=== PATIENT | male | born 1935 | race Caucasian/White ===

== ENCOUNTER 2016-06-29 15:17 | Emergency (ER) | payer OTHER, MEDICARE ==
[2016-06-29 15:25] VITALS: PULSE 80; TEMP 97.7; BMI 16.7
[2016-06-29 16:50] LABS: BASOPHIL 0.6 % (0-2.0); EOSINOPHIL 1.3 % (0-4.5); MCH 30.8 pg (25.7-33.7); MCHC 33.6 g/dl (32.0-35.9); MEAN CELL VOLUME 91.6 fl (80-96); MEAN PLT VOLUME 8.5 fl (7.5-11.1); NEUTROPHILS 73.3 % (42.8-82.8); PLATELET COUNT 189 K/MM3 (134-434); RDW 14.1 % (11.9-15.9); WHITE BLOOD COUNT 8.8 K/mm3 (4.0-10.0)
[2016-06-29 17:05] LABS: PH,URINE 6.5 (5.0-8.0); URINE BILIRUBIN 1+ (NEGATIVE); URINE COLOR RED; URINE GLUCOSE (UA) NEGATIVE (NEGATIVE); URINE KETONE NEGATIVE (NEGATIVE); URINE LEUK ESTERASE NEGATIVE (NEGATIVE); URINE NITRITE NEGATIVE (NEGATIVE); URINE UROBILINOGEN 0.2 E.U/dl E.U./dl (0.2-1.0)
[2016-06-29 17:07] LABS: URINE APPEARANCE CLOUDY; URINE BLOOD 3+ (NEGATIVE); URINE PROTEIN 3+ (NEGATIVE)
[2016-06-29 17:16] LABS: INR 1.39 (0.82-1.09); PROTHROMBIN TIME (PATIENT) 15.4 SEC (9.98-11.88)
--- NOTE | 2016-06-29 17:17 | PDOC ---
History of Present Illness - General Chief Complaint: Pain, Acute Stated Complaint: POST-OP, LOWER PELVIC/ABD PAIN Time Seen by Provider: 06/29/16 16:13 History Source: Patient, Spouse Exam Limitations: No Limitations - History of Present Illness Travel History: No Initial Comments: 06/29/16 17:14 Patient came with complaints of dysuria/oliguria. has had 2 different prostate procedures by Dr. Carpenter, once on June 11, second on June 18. States had subsequent bleeding and had to be recatheterized both of those times. Was feeling well up until yesterday when he had an occurrence recurrent onset of inability to urine with some bleeding from his penis. Patient states today has been unable to void since early this morning. Comes to emergency department with full bladder but no fever, nausea vomiting, has had some loose stools today. Was unable to reach Dr. Carpenter's office Timing/Duration: reports: constant Abdominal Pain Onset Location: reports: suprapubic Past History - Travel Traveled outside of the country in the last 30 days: No Close contact w/someone who was outside of country & ill: No - Past Medical History Allergies/Adverse Reactions: Allergies Allergy/AdvReac Type Severity Reaction Status Date / Time No Known Allergies Allergy Verified 06/29/16 15:26 Home Medications: Ambulatory Orders Aspirin [Aspirin EC] 81 mg PO ASDIR 12/03/14 Metoprolol Succinate [Toprol XL -] 25 mg PO BID PRN 01/30/15 Sulfamethoxazole/Trimethoprim [Bactrim *Ds*] 1 each PO BID #10 tablet 06/29/16 Anemia: No Asthma: No Cancer: No Cardiac Disorders: Yes (H/O IRREGULAR HEART BEAT) CVA: No COPD: No CHF: No Dementia: No Diabetes: No GI Disorders: Yes (H/O GI BLEED,CONSTIPATION) Disorders: Yes (ENLARGED PROSTATE) HTN: No Hypercholesterolemia: No Liver Disease: No Suicide Attempt (Hx): No Seizures: No Thyroid Disease: No - Surgical History Abdominal Surgery: Yes (RUPTURED ULCER) Appendectomy: No Cardiac Surgery: Yes (S/P CARDIAC ABLATION) Cholecystectomy: No Lung Surgery: No Neurologic Surgery: No Orthopedic Surgery: Yes (RIGHT HIP REPLACEMETN) - Immunization History Immunization Up to Date: Yes - Psycho/Social/Smoking Cessation Hx Anxiety: No Suicidal Ideation: No Smoking Status: Yes Smoking History: Current every day smoker Years of Tobacco Use: 50 Have you smoked in the past 12 months: Yes Number of Cigarettes Smoked Daily: 10 If you are a former smoker, when did you quit?: 2013 Information on smoking cessation initiated: No 'Breaking Loose' booklet given: 03/23/15 Hx Alcohol Use: No Drug/Substance Use Hx: No Substance Use Type: None Hx Substance Use Treatment: No Abd/GI Specific PMHX - Complaint Specific PMHX Diverticulitis: No Review of Systems - Review of Systems Able to Perform ROS?: Yes Is the patient limited Mongolian proficient: Yes Constitutional: Yes: Symptoms Reported, Loss of Appetite, Malaise HEENTM: No: Symptoms Reported Respiratory: Yes: Symptoms reported Integumentary: Yes: Symptoms Reported Neurological: Yes: Symptoms reported *Physical Exam - Vital Signs Last Vital Signs Temp Pulse Resp BP Pulse Ox 97.7 F 80 18 134/87 98 06/29/16 15:21 06/29/16 15:21 06/29/16 15:21 06/29/16 15:21 06/29/16 15:21 - Physical Exam General Appearance: Yes: Nourished, Appropriately Dressed, Apparent Distress, Mild Distress, Moderate Distress HEENT: positive: MICHEAL, Normal ENT Inspection, TMs Normal, Pharynx Normal Neck: positive: Supple. negative: Tender, Lymphadenopathy (R), Lymphadenopathy (L) Respiratory/Chest: positive: Lungs Clear, Normal Breath Sounds Cardiovascular: positive: Regular Rate Gastrointestinal/Abdominal: positive: Tender, Soft, Other (distended bladder and tender otherwise abdomen is soft) Male Genitalia: positive: normal genitalia, discharge (bleeding noted at meatus) Extremity: positive: Normal Capillary Refill, Normal Inspection Integumentary: positive: Normal Color, Dry Neurologic: positive: business banking manager II-XII NML intact, Fully Oriented, Alert, Normal Mood/ Affect, Normal Response, Motor Strength 5/5 ED Treatment Course - LABORATORY CBC & Chemistry Diagram: 06/29/16 16:30 06/29/16 16:02 - ADDITIONAL ORDERS Additional order review: Laboratory Results 06/29/16 15:40 Urine Color Red Urine Appearance Cloudy Urine pH 6.5 Ur Specific Gary 1.020 Urine Protein 3+ H Urine Glucose (UA) Negative Urine Ketones Negative Urine Blood 3+ H Urine Nitrite Negative Urine Bilirubin 1+ H Urine Urobilinogen 0.2 e.u/dl Ur Leukocyte Esterase Negative 06/29/16 16:30 RBC 4.15 D MCV 91.6 MCHC 33.6 RDW 14.1 D MPV 8.5 Neutrophils % 73.3 Lymphocytes % 18.9 Monocytes % 5.9 Eosinophils % 1.3 Basophils % 0.6 Progress Note - Progress Note Progress Note: Hematuria with only.. Catheterized with immediate return of total 15,00 cc of blood-tinged urine. Medical Decision Making - Medical Decision Making 06/29/16 17:20 anuria to obstruction/clots .. Resolved with Cox catheterization *DC/Admit/Observation/Transfer Diagnosis at time of Disposition: Acute urinary retention - Discharge Dispostion Disposition: HOME Condition at time of disposition: Stable Admit: No - Prescriptions Prescriptions: Sulfamethoxazole/Trimethoprim [Bactrim *Ds*] 1 each PO BID #10 tablet - Referrals Referrals: Drea Johnson MD [Primary Care Provider] - Zafar Velazquez MD., [Staff Physician] - - Patient Instructions Printed Discharge Instructions: DI for Urinary Retention in Men Additional Instructions: Drink lots of water fluids May "milk the catheter" if feel is becoming occluded Empty frequently, not allowing bloody urine to sit for long periods of time/ allowing to clot Bactrim DS, one tab every 12 hours for the next 5 days Stop aspirin until directed otherwise by urology Call and have follow-up appointment tomorrow or Thursday with Dr. Carpenter
[2016-06-29 17:21] LABS: URINE RBC TNTC /hpf (0-3)
[2016-06-29 17:24] LABS: ALBUMIN 3.5 g/dl (3.4-5.0); ANION GAP 7 (8-16); BILIRUBIN,TOTAL 0.3 mg/dL (0.2-1.0); CALCIUM 8.1 mg/dL (8.5-10.1); CO2 30 mmol/L (21-32); CREATININE 0.8 mg/dL (0.7-1.3); GLUCOSE,RANDOM 71 mg/dL (74-106); SGOT/AST 27 U/L (15-37); SGPT/ALT 28 U/L (12-78); TOT PROT 6.2 g/dl (6.4-8.2)
[2016-06-29 17:25] LABS: ALK PHOS 69 U/L (45-117)
[2016-06-29] MEDS ORDERED: SULFAMETHOXAZOLE/TRIMETHOPRIM 800MG/160MG D.S. TABLET PO ONE (18:12)
[2016-06-29] MEDS ORDERED: SULFAMETHOXAZOLE/TRIMETHOPRIM 800MG/160MG D.S. TABLET ONE (18:18)
[2016-06-29 18:29] VITALS: BP 134/71
== END 2016-06-29 18:29 | disposition home or self-care (01) ==
LOC: JER 15:17
PROC: 0T9B70Z Drainage of Bladder with Drainage Device, Via Natural or Artificial Opening (ICD-10-PCS; principal; 2016-06-29)
DX: R33.8 Other retention of urine (principal); I49.8 Other specified cardiac arrhythmias; I10 Essential (primary) hypertension
CPT/HCPCS: 36415; 51702; 80053; 81003; 81015; 85025; 85610; 87086; 99283-25

== ENCOUNTER 2017-01-08 07:49 | Emergency (ER) | payer OTHER, MEDICARE ==
[2017-01-08 08:11] VITALS: BP 129/72; PULSE 58; TEMP 98; BMI 14.1
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
== END 2017-01-08 09:44 | disposition home or self-care (01) ==
LOC: JER 07:49
DX: S06.9X1A Unspecified intracranial injury with loss of consciousness of 30 minutes or less, initial encounter (principal); W50.0XXA Accidental hit or strike by another person, initial encounter; Y93.89 Activity, other specified; Y92.512 Supermarket, store or market as the place of occurrence of the external cause
CPT/HCPCS: 70450-TC; 73502-TC-RT; 99281-25

== ENCOUNTER 2018-01-19 01:00 | Emergency (ER) | payer OTHER, MEDICARE ==
[2018-01-19 01:21] VITALS: BMI 16.5
--- NOTE | 2018-01-19 02:19 | PDOC ---
History of Present Illness - General Chief Complaint: Injury Stated Complaint: FALL Time Seen by Provider: 01/19/18 01:47 History Source: Patient, Spouse Exam Limitations: Dementia - History of Present Illness Initial Comments: 01/19/18 02:13 82 yo male pmh of dementia, afib with ablation presents from home pmh after fall at 11 pm. No LOC, on aspirin 81mg. Complaining of ODONNELL, 1 episode of vomiting and new left sided numbness/tingling and weakness in the upper and lower ext. Patient admittedly more confused according to his after the fall as well. NIH Stroke Scale - Last Known Well Date/Time & Onset Date Last Known Well: 01/18/18 Time Last Known Well: 23:00 - Initial Evaluation Level of consciousness: Alert Ask patient the month and their age: Answers both correctly Ask patient to open & close eyes; make fist and let go: Obeys both correctly Best gaze (horizontal eye movement): Normal Visual field testing: No visual field loss Facial paresis (Show teeth/raise eyebrows/close eyes tight): Normal symmetrical movement Motor Function: Left Arm: Some effort against gravity Motor Function: Right Arm: Normal (extends arm 90 (or 45) degrees for 10 seconds without drift Motor Function: Left Leg: Some effort against gravity Motor Function: Right Leg: Normal (extends leg 30 degrees for 5 seconds without drift) Limb Ataxia: Untestable (Joint fused or limb amputated), explain: (not ambulating) Sensory(Use pinprick test arms,legs,trunk,face/side to side): Mild to moderate decrease in sensation Best language (Describe picture, name items, read sentences): No Aphasia Dysarthria (read several words): Normal articulation Extinction and Inattention: No abnormality - Total Score NIH Stroke Scale Score: 5 Past History - Past Medical History Allergies/Adverse Reactions: Allergies Allergy/AdvReac Type Severity Reaction Status Date / Time No Known Allergies Allergy Verified 01/19/18 01:16 Home Medications: Ambulatory Orders Aspirin [Aspirin EC] 81 mg PO ASDIR 12/03/14 Metoprolol Succinate [Toprol XL -] 25 mg PO BID PRN 01/30/15 Anemia: No Asthma: No Cancer: No Cardiac Disorders: Yes (H/O IRREGULAR HEART BEAT) CVA: No COPD: No CHF: No Dementia: No Diabetes: No GI Disorders: Yes (H/O GI BLEED,CONSTIPATION) Disorders: Yes (ENLARGED PROSTATE) HTN: No Hypercholesterolemia: No Liver Disease: No Seizures: No Thyroid Disease: No - Surgical History Abdominal Surgery: Yes (RUPTURED ULCER) Appendectomy: No Cardiac Surgery: Yes (S/P CARDIAC ABLATION) Cholecystectomy: No Lung Surgery: No Neurologic Surgery: No Orthopedic Surgery: Yes (RIGHT HIP REPLACEMENT) - Immunization History Immunization Up to Date: Yes - Suicide/Smoking/Psychosocial Hx Smoking Status: Yes Smoking History: Unknown if ever smoked Years of Tobacco Use: 50 Have you smoked in the past 12 months: No Number of Cigarettes Smoked Daily: 10 If you are a former smoker, when did you quit?: 2013 Information on smoking cessation initiated: No 'Breaking Loose' booklet given: 01/08/17 Hx Alcohol Use: No Drug/Substance Use Hx: No Substance Use Type: None Hx Substance Use Treatment: No Review of Systems - Review of Systems HEENTM: No: Blurred Vision, Double Vision Respiratory: No: Shortness of Breath Cardiac (ROS): No: Chest Pain Neurological: Yes: Headache, Numbness, Paresthesia, Weakness (left sided) Hematologic/Lymphatic: Yes: Other (aspirin 81) *Physical Exam - Vital Signs Last Vital Signs Temp Pulse Resp BP Pulse Ox 97.7 F 68 18 142/85 99 01/19/18 01:05 01/19/18 01:05 01/19/18 01:05 01/19/18 01:05 01/19/18 01:05 - Physical Exam General Appearance: Yes: Nourished, Appropriately Dressed, Apparent Distress ( intermittent involuntary shaking) HEENT: positive: EOMI, MICHEAL Respiratory/Chest: positive: Lungs Clear, Normal Breath Sounds Cardiovascular: positive: Regular Rhythm, Regular Rate, S1, S2. negative: Edema , JVD, Murmur Vascular Pulses: Dorsalis-Pedis (R): 4+, Doralis-Pedis (L): 4+ Gastrointestinal/Abdominal: positive: Normal Bowel Sounds, Flat, Soft. negative : Guarding, Rebound, Tenderness Extremity: positive: Normal Capillary Refill Integumentary: positive: Normal Color, Dry, Warm Neurologic: positive: Fully Oriented, Alert, Normal Mood/Affect. negative: Motor Strength 5/5 (4/5 left upper and lower ext. Decreased sensation left uppre and lower ext) *DC/Admit/Observation/Transfer Diagnosis at time of Disposition: Stroke Qualifiers: CVA mechanism: other Qualified Code(s): I63.8 - Other cerebral infarction - Discharge Dispostion Disposition: TRANSFER ACUTE CARE/OTHER HOSP Condition at time of disposition: Stable Decision to Admit order: No - Referrals - Patient Instructions - Post Discharge Activity
[2018-01-19] MEDS ORDERED: levETIRAcetam 500 MG/5 ML INJECTION VIAL IVPB ONE (02:45)
--- NOTE | 2018-01-19 02:46 | PDOC ---
Attending Attestation - Resident Resident Name: Luc Medina - ED Attending Attestation I have performed the following: I have examined & evaluated the patient, The case was reviewed & discussed with the resident, I agree w/resident's findings & plan, Exceptions are as noted - HPI HPI: 01/19/18 02:37 82 YO MALE h/o prior gastric ulcer here with c/o AMS, left sided weakness. per his who provides most of the history the patient was sleeping on couch after taking melatonin. suddenly fell of the couch afterwords was unable to get up . no n/v no loc. no ho prior cva. states he was acting normal during the last 24 hours, but was c/o left sided " pain" was ambulating and speaking without difficulty. last normal 3 hours prior to presentation. no seizure like activity, no other complaints. - Physicial Exam PE: 01/19/18 02:46 sleeping but arousable. answers questions intermittently. lung clear bilaterally heart rrr nomrg. abd soft nt nd. ext wwp. pelvis stable. left hip FROM NT. right hip NT FROM. skin warm and dry. pt alert oriented x 1. nuero exam left upper ext 3/5 , left lower ext 4/5. speech clear. - Medical Decision Making 01/19/18 02:52 pt with new onset left upper and lower ext weakness, concens for cva, ich fracture, plan labs cthead, cxr ekg. xray pelvis. code simons called as pt with acute left upper ext weakness. ct resulted shows a right occiptal bleed. call center assistant DR Evin warner, awaiting call back. d/w gabbi anaya who accepting for Yasari at neurosurgery, and Dr. Gutierrez in ED who will accept pt to ED. keppra 1g given to patient. 01/19/18 03:15 Heart Score/ECG Review #1 General ECG Interpretation: Sinus Rhythm, Normal Rate (68), Normal Intervals, No acute ischemic changes NIH Stroke Scale - Last Known Well Date/Time & Onset Date Last Known Well: 01/18/18 Time Last Known Well: 11:00 - Initial Evaluation Level of consciousness: Alert Ask patient the month and their age: Answers both correctly Ask patient to open & close eyes; make fist and let go: Obeys both correctly Best gaze (horizontal eye movement): Normal Visual field testing: No visual field loss Facial paresis (Show teeth/raise eyebrows/close eyes tight): Normal symmetrical movement Motor Function: Left Arm: Some effort against gravity Motor Function: Right Arm: Normal (extends arm 90 (or 45) degrees for 10 seconds without drift Motor Function: Left Leg: Drift Motor Function: Right Leg: Normal (extends leg 30 degrees for 5 seconds without drift) Limb Ataxia: No ataxia Sensory(Use pinprick test arms,legs,trunk,face/side to side): Normal Best language (Describe picture, name items, read sentences): No Aphasia Dysarthria (read several words): Normal articulation Extinction and Inattention: No abnormality - Total Score NIH Stroke Scale Score: 3
[2018-01-19 03:01] LABS: BASO % 0.5 % (0-2.0); EOS % 2.2 % (0-4.5); HEMATOCRIT 39.7 % (35.4-49); HEMOGLOBIN 13.4 GM/dL (11.7-16.9); LYMPH % 12.7 % (8-40); MCH 30.2 pg (25.7-33.7); MCHC 33.7 g/dl (32.0-35.9); MEAN CELL VOLUME 89.7 fl (80-96); MEAN PLT VOLUME 8.1 fl (7.5-11.1); MONO % 5.9 % (3.8-10.2); NEUT % 78.7 % (42.8-82.8); PLATELET COUNT 172 K/MM3 (134-434); RBC 4.43 M/mm3 (4.00-5.60); RDW 14.2 % (11.9-15.9); WHITE BLOOD COUNT 8.1 K/mm3 (4.0-10.0)
[2018-01-19 03:08] VITALS: TEMP 98.5
[2018-01-19 03:13] LABS: INR 1.3 (0.83-1.09); PROTHROMBIN TIME (PATIENT) 14.7 SEC (9.7-13.0)
[2018-01-19 03:22] LABS: ALBUMIN 3.4 g/dl (3.4-5.0); ANION GAP 5 MMOL/L (8-16); BILIRUBIN,TOTAL 0.5 mg/dL (0.2-1); BLOOD UREA NITROGEN 19 mg/dL (7-18); CALCIUM 8.4 mg/dL (8.5-10.1); CHLORIDE 104 mmol/L (98-107); CO2 32 mmol/L (21-32); CREATININE 1.1 mg/dL (0.55-1.3); GLUCOSE,RANDOM 112 mg/dL (74-106); POTASSIUM 4.3 mmol/L (3.5-5.1); SGOT/AST 30 U/L (15-37); SGPT/ALT 25 U/L (13-61); SODIUM 141 mmol/L (136-145)
[2018-01-19 03:24] LABS: ALK PHOS 72 U/L (45-117); TOT PROT 6.5 g/dl (6.4-8.2)
[2018-01-19 04:38] VITALS: BP 140/68; PULSE 76
--- NOTE | 2018-01-19 16:18 | EKG ---
Test Reason : Blood Pressure : / mmHG Vent. Rate : 069 BPM Atrial Rate : 069 BPM P-R Int : 140 ms QRS Dur : 082 ms QT Int : 402 ms P-R-T Axes : -55 -56 -07 degrees QTc Int : 430 ms UNUSUAL P AXIS, POSSIBLE ECTOPIC ATRIAL RHYTHM LEFT AXIS DEVIATION ABNORMAL ECG WHEN COMPARED WITH ECG OF 12-JUN-2015 10:12, ECTOPIC ATRIAL RHYTHM HAS REPLACED SINUS RHYTHM QRS AXIS SHIFTED LEFT NONSPECIFIC T WAVE ABNORMALITY NOW EVIDENT IN INFERIOR LEADS Confirmed by Aris Veliz ([id number]) on 01/19/2018 4:18:24 PM Referred By: Confirmed By:Aris Veliz
== END 2018-01-19 04:05 | disposition short-term general hospital (02) ==
LOC: JER 01:00
PROC: 3E033GC Introduction of Other Therapeutic Substance into Peripheral Vein, Percutaneous Approach (ICD-10-PCS; principal; 2018-01-19)
DX: I63.8 Other cerebral infarction (principal); F03.90 Unspecified dementia, unspecified severity, without behavioral disturbance, psychotic disturbance, mood disturbance, and anxiety; Z87.891 Personal history of nicotine dependence; I49.9 Cardiac arrhythmia, unspecified; Z96.641 Presence of right artificial hip joint
CPT/HCPCS: 36415; 70450-TC; 71045-TC-FY; 80053; 82550; 82553; 84484; 85025; 85610; 93005; 93010; 96374; 99283-25

== ENCOUNTER 2018-04-29 16:36 | Emergency (ER) | payer OTHER, MEDICARE ==
[2018-04-29 16:48] VITALS: BMI 17.9
[2018-04-29] MEDS ORDERED: ACETAMINOPHEN 500 MG TABLET (FP) PO ONE (17:15)
--- NOTE | 2018-04-29 17:31 | PDOC ---
Attending Attestation - [facility] HPI: 04/29/18 18:08 The patient is a 83 year old male, with a significant past medical history of Afib s/p ablation and dementia, who presents to the emergency department with left lateral hip pain after falling while trying to sit in a chair this evening. The patient states he missed the chair and fell onto his buttocks. He denies head or neck trauma. He denies LOC. He denies an preceding symptoms prior to falling. He denies any numbness or tingling. He denies any other complaints. The patient denies chest pain, shortness of breath, headache and dizziness. The patient denies fever, chills, nausea, vomit, diarrhea and constipation. The patient denies dysuria, frequency, urgency and hematuria. Allergies: NKDA Past surgical history: right THR - Physicial Exam PE: 04/29/18 18:08 Constitutional: Awake, alert, oriented. No acute distress. Head: Normocephalic. Atraumatic Eyes: PERRL. EOMI. Conjunctivae are not pale. ENT: Mucous membranes are moist and intact. Posterior pharynx without exudates or erythema. Uvula midline. Neck: Supple. Full ROM. No lymphadenopathy. Cardiovascular: Regular rate. Regular rhythm. S1, S2 regular. Distal pulses are 2+ and symmetric. Pulmonary/Chest: No evidence of respiratory distress. Clear to auscultation bilaterally No wheezing, rales or rhonchi. Abdominal: Soft and non-distended. There is no tenderness. No rebound, guarding or rigidity. No organomegaly. No palpable masses. Good bowel sounds. Back: No CVA tenderness. Musculoskeletal: (+) left lateral hip tenderness on palpation. No edema. No cyanosis. No clubbing. Full range of motion in all extremities. No cspine or Lspine tenderness or deformity. Nocalf tenderness. Radial/pedal pulses are intact and 2+ bilaterally Skin: Skin is warm and dry. No petechiae. No purpura. Neurological: Alert and oriented to person, place, and time. Cranial nerves II -XII are grossly intact. Normal speech. Strength is grossly symmetric. No sensory deficits. Psychiatric: Good eye contact. Normal interaction, affect and behavior. - Medical Decision Making 04/29/18 18:08 Documentation prepared by Val Feng, acting as medical claims examiner for Cristiana Russ DO <Val Feng - Last Filed: 04/29/18 18:08> - Resident Resident Name: Chemo Fernandez - ED Attending Attestation I have performed the following: I have examined & evaluated the patient, The case was reviewed & discussed with the resident, I agree w/resident's findings & plan, Exceptions are as noted - Medical Decision Making 04/29/18 17:29 I, Dr. Cristiana Russ DO, attest that this document has been prepared under my direction and personally reviewed by me in its entirety. I further attest, that it accurately reflects all work, treatment, procedures and medical decision -making performed by me. 04/29/18 17:46 a/p: 83yo male with a mechanical fall earlier today when he went to sit on a chair and missed the chair. Landed on his L hip -hx of R hip replacement -pt with point tenderness to the lateral L hip -pt able to range the joint -denies cp/sob/abd pain/headache or injury -will obtain xrays of the R hip and pelvis -no back ttp -pt awake, alert, hx of dementia, but currently [id number] 04/29/18 18:39 xray negative pt ambulated with assistance has a walker and wheelchair at home has son and at home to assist with ambulation stable for d/c to home pt requesting to go home <Cristiana Russ - Last Filed: 04/29/18 18:40>
--- NOTE | 2018-04-29 17:37 | PDOC ---
History of Present Illness - General Chief Complaint: Injury Stated Complaint: Injury Time Seen by Provider: 04/29/18 16:59 History Source: Patient, Old Records Exam Limitations: Dementia - History of Present Illness Initial Comments: 83 y/o male BIBEMS from home complaining of left hip pain. Symptoms started after pt missed the chair and fell onto the ground, striking the left hip. Denies hitting his head or neck. Denies LOC, nausea/vomiting, or anterograde or retrograde amnesia. Was not able to ambulate after the fall secondary to pain. His and son witnessed the fall. Son carried his father from the kitchen to his bed before calling for an ambulance. Endorses point tenderness on to left hip, but no pain at rest. Was in previous state of health prior to fall. Pt unable to recall his medical history. No family present at bedside. [facility]. Past History - Past Medical History Allergies/Adverse Reactions: Allergies Allergy/AdvReac Type Severity Reaction Status Date / Time No Known Allergies Allergy Verified 01/19/18 01:16 Home Medications: Ambulatory Orders Aspirin [Aspirin EC] 81 mg PO ASDIR 12/03/14 Metoprolol Succinate [Toprol XL -] 25 mg PO BID PRN 01/30/15 Anemia: No Asthma: No Cancer: No Cardiac Disorders: Yes (H/O IRREGULAR HEART BEAT) CVA: No COPD: No CHF: No Dementia: No Diabetes: No GI Disorders: Yes (H/O GI BLEED,CONSTIPATION) Disorders: Yes (ENLARGED PROSTATE) HTN: No Hypercholesterolemia: No Liver Disease: No Seizures: No Thyroid Disease: No - Surgical History Abdominal Surgery: Yes (RUPTURED ULCER) Appendectomy: No Cardiac Surgery: Yes (S/P CARDIAC ABLATION) Cholecystectomy: No Lung Surgery: No Neurologic Surgery: No Orthopedic Surgery: Yes (RIGHT HIP REPLACEMENT) - Immunization History Immunization Up to Date: Yes - Suicide/Smoking/Psychosocial Hx Smoking Status: Yes Smoking History: Former smoker Years of Tobacco Use: 50 Have you smoked in the past 12 months: No Number of Cigarettes Smoked Daily: 10 If you are a former smoker, when did you quit?: 2013 Information on smoking cessation initiated: No 'Breaking Loose' booklet given: 01/08/17 Hx Alcohol Use: No Drug/Substance Use Hx: No Substance Use Type: None Hx Substance Use Treatment: No Review of Systems - Review of Systems Able to Perform ROS?: Yes Comments:: In addition to that documented in the HPI above, the additional ROS was obtained : Constitutional: Denies fevers or chills or syncope Eyes: Denies vision changes ENMT: Denies sore throat CV: Denies chest pain Resp: Denies SOB GI: Denies vomiting or diarrhea : Denies painful urination MSK: Per HPI Skin: Denies new rashes Neuro: Denies new numbness or tingling or weakness Endocrine: Denies polyuria Heme: Denies bleeding or bruising *Physical Exam - Vital Signs Last Vital Signs Temp Pulse Resp BP Pulse Ox 98.5 F 54 L 18 130/86 96 04/29/18 16:44 04/29/18 16:44 04/29/18 16:44 04/29/18 16:44 04/29/18 16:44 - Physical Exam Comments: Constitutional: Well-developed, thin male in no acute distress or obvious discomfort. Found semi-fowlers on hospital bed. Alert and oriented x4. Answered all questions appropriately and completely. Speech was non-labored, non- pressured. Head: Normocephalic. No obvious external signs of trauma. Eyes: Pupils 4 mm and PERRL bilaterally. Sclerae white. Conjunctiva moist and not injected. EARS: Hearing grossly intact. NOSE: No nasal discharge. THROAT: Oral cavity and pharynx normal. No inflammation, swelling, exudate, or lesions. Neck: Supple, trachea is midline. Cardiovascular: Regular rate and regular rhythm. No murmur, rubs, clicks, or gallops. Peripheral pulses: Radial pulses full. Respiratory: Breathing unlabored. Equal chest rise and fall. Clear to auscultation bilaterally. No stridor, no wheezing, no rhonchi. Gastrointestinal: abdomen is soft, non-tender, non-distended. Old post- operative scar in midline. Neuro: Alert and oriented. Moving all four extremities spontaneously. Intact sensation to all four extremities. MSK: Point tenderness to lateral aspect of left hip. No obvious deformity when compared to right. Able to actively flex and extend from left hip. Old post-op scar on right hip. No bruising or soft tissue swelling. Pelvis stable. Skin: Warm, dry, and intact. No bruising, rashes, or other lesions. Psych: Affect: appropriate. Mood: normal. Moderate Sedation - Procedure Monitoring Vital Signs: Procedure Monitoring Vital Signs Temperature 98.5 F 04/29/18 16:44 Pulse Rate 54 L 04/29/18 16:44 Respiratory Rate 18 04/29/18 16:44 Blood Pressure 130/86 04/29/18 16:44 O2 Sat by Pulse Oximetry (%) 96 04/29/18 16:44 ED Treatment Course - RADIOLOGY Radiology Studies Ordered: Category Date Time Status HIP & PELVIS-LEFT [RAD] Stat Radiology 04/29/18 17:15 Ordered Medical Decision Making - Medical Decision Making *Reviewed vital signs, nursing notes, and prior visit documentation (if available). 83 y/o male complaining of left hip pain s/p fall from standing position this afternoon. Has not attempted to ambulate or bare weight. Did not strike his head or neck. Will obtain plain films of left hip and pelvis to evaluate for fracture or dislocation. Ordered acetaminophen for pain relief. No fracture or dislocation of on plain film per ED wet read. Formal radiology report to follow. Pt re-assessed. Continued to complain of pain only with movement. Able to stand and walk with assistance. Pt endorses occasionally using walker and wheelchair at home. Believes son will be able to assist with movement. Discussed imaging results with pt. Answered all questions. Provided return precautions. Pt expressed verbal understanding and agreement with plan to discharge home with outpatient follow up. *DC/Admit/Observation/Transfer Diagnosis at time of Disposition: Left hip pain - Discharge Dispostion Disposition: HOME Condition at time of disposition: Good Decision to Admit order: No - Referrals - Patient Instructions Printed Discharge Instructions: How to Prevent Falls Additional Instructions: You were seen today for left hip pain after falling in your kitchen. The xray was normal today. It did not show any breaks or fractures. Your pain is likely muscle or soft tissue injury. It may continue to hurt over the next several days. You can take over the counter Tylenol (Acetaminophen) for pain. Take as directed on the package insert. Do not take more than the recommended dose. You should follow up with your primary care doctor within the next week to make sure you are healing. You will need to call to make the appointment. Go to the nearest emergency department if your condition worsens or you feel like you need additional emergency evaluation. Print Language: TUVALUAN - Post Discharge Activity
[2018-04-29] MEDS ORDERED: ACETAMINOPHEN 325 MG TABLET (FP) ONE (17:38)
[2018-04-29 20:11] VITALS: BP 110/78; PULSE 88; TEMP 98.6
== END 2018-04-29 20:12 | disposition home or self-care (01) ==
LOC: JER 16:36
DX: M25.552 Pain in left hip (principal); W18.39XA Other fall on same level, initial encounter; Y93.89 Activity, other specified; Y92.010 Kitchen of single-family (private) house as the place of occurrence of the external cause; Y99.8 Other external cause status; F03.90 Unspecified dementia, unspecified severity, without behavioral disturbance, psychotic disturbance, mood disturbance, and anxiety; N40.0 Benign prostatic hyperplasia without lower urinary tract symptoms; Z86.79 Personal history of other diseases of the circulatory system; Z96.641 Presence of right artificial hip joint
CPT/HCPCS: 73523-TC-FY; 99282-25

== ENCOUNTER 2018-05-08 05:57 | Inpatient (IN) | payer OTHER, MEDICARE ==
--- NOTE | 2018-05-08 06:04 | PDOC ---
History of Present Illness - General Stated Complaint: HIP PAIN Time Seen by Provider: 05/08/18 06:03 History Source: Patient Exam Limitations: No Limitations - History of Present Illness Initial Comments: 05/08/18 06:28 Pmhx: A-fib, dementia Pshx: Right THR, ablation Allergies: NKDA 83-year-old female avrin presents to the ER complaining of left-sided hip pain. Patient states he fell 8 days ago. Patient states he was attempting to sit on a chair when he missed and fell onto his buttocks on the floor. Pain is described as 7/10 sharp nonradiating intermittent discomfort which is exacerbated on certain movements and alleviated minimally at rest. Patient denies any head/neck or back pains. Patient denies fever/chills, nausea/vomiting , headache, dizziness, lightheadedness, facial pains, dizziness/pain, back pains , chest pain, shortness of breath, abdominal pains, flank pains, urinary symptoms, bladder or bowel dysfunction, extremity numbness or tingling sensation. Patient states he is unable to walk due to his pain. Patient states when he was seen in the emergency department on 04/29/2018, he had x-ray to his left hip and pelvis and were negative. Patient states after getting discharged, he was fine for 12 hours but the pain slowly came back and has been excruciating since yesterday. Past History - Past Medical History Allergies/Adverse Reactions: Allergies Allergy/AdvReac Type Severity Reaction Status Date / Time No Known Allergies Allergy Verified 05/08/18 06:17 Home Medications: Ambulatory Orders Metoprolol Succinate [Toprol XL -] 25 mg PO BID PRN 01/30/15 Anemia: No Asthma: No Cancer: No Cardiac Disorders: Yes (H/O IRREGULAR HEART BEAT) CVA: No COPD: No CHF: No Dementia: No Diabetes: No GI Disorders: Yes (H/O GI BLEED,CONSTIPATION) Disorders: Yes (ENLARGED PROSTATE) HTN: No Hypercholesterolemia: No Liver Disease: No Seizures: No Thyroid Disease: No - Surgical History Abdominal Surgery: Yes (RUPTURED ULCER) Appendectomy: No Cardiac Surgery: Yes (S/P CARDIAC ABLATION) Cholecystectomy: No Lung Surgery: No Neurologic Surgery: No Orthopedic Surgery: Yes (RIGHT HIP REPLACEMENT) - Immunization History Immunization Up to Date: Yes - Suicide/Smoking/Psychosocial Hx Smoking Status: Yes Smoking History: Former smoker Years of Tobacco Use: 50 Have you smoked in the past 12 months: No Number of Cigarettes Smoked Daily: 10 If you are a former smoker, when did you quit?: 2013 'Breaking Loose' booklet given: 01/08/17 Hx Alcohol Use: No Drug/Substance Use Hx: No Substance Use Type: None Hx Substance Use Treatment: No Review of Systems - Review of Systems Able to Perform ROS?: Yes Comments:: 05/08/18 06:32 CONSTITUTIONAL: Absent: fever, chills, diaphoresis, generalized weakness, malaise, loss of appetite HEENT: Absent: rhinorrhea, nasal congestion, throat pain, throat swelling, difficulty swallowing, mouth swelling, ear pain, eye pain, visual Changes CARDIOVASCULAR: Absent: chest pain, loss of consciousness, palpitations, irregular heart rate, peripheral edema RESPIRATORY: Absent: cough, shortness of breath, dyspnea with exertion, orthopnea, wheezing, stridor, hemoptysis GASTROINTESTINAL: Absent: abdominal pain, abdominal distension, nausea, vomiting, diarrhea, constipation, melena, hematochezia GENITOURINARY: Absent: dysuria, frequency, urgency, hesitancy, hematuria, flank pain, genital pain MUSCULOSKELETAL: +Left lat hip pain Absent: myalgia, arthralgia, joint swelling SKIN: Absent: rash, itching, pallor HEMATOLOGIC/IMMUNOLOGIC: Absent: easy bleeding, easy bruising, lymphadenopathy, frequent infections ENDOCRINE: Absent: unexplained weight gain, unexplained weight loss, heat intolerance, cold intolerance NEUROLOGIC: Absent: headache, focal weakness or paresthesias, dizziness, unsteady gait, seizure, mental status changes, bladder or bowel incontinence PSYCHIATRIC: Absent: anxiety, depression, suicidal or homicidal ideation, hallucinations. Is the patient limited Hungarian proficient: No *Physical Exam - Physical Exam Comments: 05/08/18 06:32 GENERAL: Well developed, well nourished. Awake and alert. No acute distress. HEENT: Normocephalic, atraumatic. PERRLA, EOMI. No conjunctival pallor. Sclera are non- icteric. Moist mucous membranes. Oropharynx is clear. NECK: Supple. Full ROM. No JVD. Carotid pulses 2+ and symmetric, without bruits. No thyromegaly. No lymphadenopathy. CARDIOVASCULAR: Regular rate and rhythm. No murmurs, rubs, or gallops. Distal pulses are 2+ and symmetric. PULMONARY: No evidence of respiratory distress. Lungs clear to auscultation bilaterally. No wheezing, rales or rhonchi. ABDOMINAL: Soft. Non-tender. Non-distended. No rebound or guarding. No organomegaly. Normoactive bowel sounds. MUSCULOSKELETAL Left hip: +Pain on palp along lat aspect +neg obv swelling neg ecchymosis Decreased R.O.M./pain Left knee: neg pain on palp decreased R.O.M./left hip pain Excluding left hip:Normal range of motion at all joints. No bony deformities or tenderness. No CVA tenderness. EXTREMITIES: No cyanosis. No clubbing. No edema. No calf tenderness. SKIN: Warm and dry. Normal capillary refill. No rashes. No jaundice. NEUROLOGICAL: Alert, awake, appropriate. Cranial nerves 2-12 intact. No deficits to light touch and temperature in face, upper extremities and lower extremities. No motor deficits in the in face, upper extremities and lower extremities. Normoreflexic in the upper and lower extremities. Normal speech. Toes are down- going bilaterally. Gait is normal without ataxia. PSYCHIATRIC: Cooperative. Good eye contact. Appropriate mood and affect. ED Treatment Course - LABORATORY CBC & Chemistry Diagram: 05/08/18 06:10 05/08/18 06:10 - RADIOLOGY Radiology Studies Ordered: Category Date Time Status LOWER EXTREMITY CT W/O CONTR [CT] Stat CT Scan 05/08/18 06:02 Ordered Radiograph Interpretation: 05/08/18 06:34 Portable cxr; 1v nad Ct lower ext w/o contrast: Transverse fracture of the left femoral neck with some impaction and external rotation. There is foreshortening. Progress Note - Progress Note Progress Note: 0710hrs: Signed out to PEGGY Brock *DC/Admit/Observation/Transfer Diagnosis at time of Disposition: Left hip pain Hip fracture, left Qualifiers: Encounter type: initial encounter Fracture type: closed Qualified Code(s): S72.002A - Fracture of unspecified part of neck of left femur, initial encounter for closed fracture - Discharge Dispostion Condition at time of disposition: Fair - Referrals Referrals: Ciara Hinson MD [Primary Care Provider] - - Patient Instructions - Post Discharge Activity
[2018-05-08 06:25] LABS: BASO % 1.4 % (0-2.0); EOS % 0.7 % (0-4.5); HEMATOCRIT 41.4 % (35.4-49); HEMOGLOBIN 14.5 GM/dL (11.7-16.9); LYMPH % 13.9 % (8-40); MCH 31.3 pg (25.7-33.7); MCHC 35.1 g/dl (32.0-35.9); MEAN CELL VOLUME 89.3 fl (80-96); MEAN PLT VOLUME 8.2 fl (7.5-11.1); MONO % 7.9 % (3.8-10.2); NEUT % 76.1 % (42.8-82.8); PLATELET COUNT 216 K/MM3 (134-434); RBC 4.64 M/mm3 (4.00-5.60); RDW 13.2 % (11.9-15.9); WHITE BLOOD COUNT 8.3 K/mm3 (4.0-10.0)
[2018-05-08 06:41] LABS: INR 1.34 (0.83-1.09); PROTHROMBIN TIME (PATIENT) 15.8 SEC (9.7-13.0)
[2018-05-08 07:05] LABS: ALBUMIN 3.2 g/dl (3.4-5.0); ALK PHOS 123 U/L (45-117); ANION GAP 8 MMOL/L (8-16); BILIRUBIN,TOTAL 0.6 mg/dL (0.2-1); BLOOD UREA NITROGEN 16 mg/dL (7-18); CALCIUM 8.3 mg/dL (8.5-10.1); CHLORIDE 103 mmol/L (98-107); CO2 28 mmol/L (21-32); CREATININE 0.9 mg/dL (0.55-1.3); GLUCOSE,RANDOM 104 mg/dL (74-106); POTASSIUM 4.1 mmol/L (3.5-5.1); SGOT/AST 20 U/L (15-37); SGPT/ALT 18 U/L (13-61); SODIUM 138 mmol/L (136-145); TOT PROT 6.6 g/dl (6.4-8.2)
[2018-05-08] MEDS ORDERED: ONDANSETRON 4 MG/2 ML VIAL IVPUSH ONE (07:05)
[2018-05-08] MEDS ORDERED: morphine CARPU-JECT 2 MG/1 ML DISP.SYRIN IVPUSH ONE (07:05)
[2018-05-08] MEDS ORDERED: ONDANSETRON 4 MG/2 ML VIAL ONE ×2 (08:10→08:17)
[2018-05-08] MEDS ORDERED: MORPHINE SULFATE 2 MG/ML VIAL ONE ×2 (08:10→08:17)
[2018-05-08] MEDS ORDERED: DEXTROSE 5%-0.45% SALINE 1,000 ML IV SCH (08:15)
--- NOTE | 2018-05-08 08:19 | PDOC ---
*Physical Exam - Vital Signs Last Vital Signs Temp Pulse Resp BP Pulse Ox 98.1 F 60 18 190/92 H 97 05/08/18 05:57 05/08/18 05:57 05/08/18 05:57 05/08/18 05:57 05/08/18 05:57 Heart Score/ECG Review - ECG Intrepretation Rhythm: Regular Rhythm (55, sinus bradycardia,) ED Treatment Course - LABORATORY CBC & Chemistry Diagram: 05/08/18 06:10 05/08/18 06:10 - ADDITIONAL ORDERS Additional order review: Laboratory Results 05/08/18 05/08/18 06:10 06:10 PT with INR 15.80 H INR 1.34 H Sodium 138 Potassium 4.1 Chloride 103 Carbon Dioxide 28 Anion Gap 8 BUN 16 Creatinine 0.9 Creat Clearance w eGFR > 60 Random Glucose 104 Calcium 8.3 L Total Bilirubin 0.6 AST 20 ALT 18 Alkaline Phosphatase 123 H Total Protein 6.6 Albumin 3.2 L 05/08/18 06:10 RBC 4.64 MCV 89.3 MCHC 35.1 RDW 13.2 MPV 8.2 Neutrophils % 76.1 Lymphocytes % 13.9 Monocytes % 7.9 Eosinophils % 0.7 Basophils % 1.4 - RADIOLOGY Radiology Studies Ordered: Category Date Time Status DUPLEX VASCUL US-1 LEG [US] Stat Ultrasound 05/08/18 08:07 Ordered Medical Decision Making - Medical Decision Making 05/08/18 08:19 Patient received in sign out from KRISTAN murphy. Patient sustained a fall approximately 8 beats ago and returns here inability to walk and complains of left hip pain. CT of the lower extremity shows a transverse fracture of the left femoral neck with some impaction and external rotation. Patient states is followed by the [facility] and does not have an orthopedist. Patient will be ordered maintenance IV fluids nothing by mouth status, duplex of the lower extremity and will admit . 05/08/18 09:24 Case discussed with hospitalist will admit to [facility] inpatient. Case also discussed with KRISTAN Tomlinson orthopedist automobile service station manager and will consult shortly. Patient is comfortable after receiving morphine *DC/Admit/Observation/Transfer Diagnosis at time of Disposition: Left hip pain Hip fracture, left Qualifiers: Encounter type: initial encounter Fracture type: closed Qualified Code(s): S72.002A - Fracture of unspecified part of neck of left femur, initial encounter for closed fracture - Discharge Dispostion Condition at time of disposition: Fair Decision to Admit order: Yes - Referrals Referrals: Ciara Hinson MD [Primary Care Provider] - - Patient Instructions - Post Discharge Activity
--- NOTE | 2018-05-08 10:01 | HP ---
CHIEF COMPLAINT: left hip pain PCP: dr. De Guzman Cardio: Dr. Felder HISTORY OF PRESENT ILLNESS: 83 yr old man with hx of afib s/p ablation 1(not on AC, now in sinus), dementia s/p stroke, presents with left hip pain since early this morning. says he was sleeping in bed when he was awoken by a sudden pain nonradiating in his left hip , his called 911 and he was brought to [facility]. He sustained a fall on 04/29 when trying to sit on a chair and missed. He was evaluated in [facility] Ed, hip xray at that time did not show any fracture. Since DC he continued to have pain in the left hip somewhat controlled with tylenol and had been ambulating using crutches and a wheelchair. denies repeat falls or changes to bowel habits. denies chest pain, dizziness, lightheadedness, muscle weakness, chest pain, palpitations, sob, LE edema, fevers, chills. recent stroke [address] [facility] then [facility] rehab, denies residual deficits. spoke with [phone]), confirms stroke hx, he did not fall again, he was mainly in the wheelchair and in the bed since dc on 04/29. for past 2 night he had been in excruciating pain and last night he was in such terrible pain that she called an ambulance. they live alone. after stroke rehab he had made a full recovery back to his baseline. denies ASA/NSAID use. they live alone ER course was notable for: (1) hip pelvis ct with left femur fracture (2) (3) Recent Travel: none PAST MEDICAL HISTORY: chart reviewed for further medical hx afib s/p ablation in Mar 2014 BPH stroke 1 month ago at [facility] hx of GI bleeds, peptic ulcer disease hx of DVT(listed in previous h&p - no dates or cause recorded, pt was unsure when I questioned him) PAST SURGICAL HISTORY: prostate surgery right hip replacement approx 2008 due to RA abdominal surgery due to perforated ulcer 20 yrs ago Social History: [place]/day since he was 17, quit 2 months(after his stroke) Alcohol: rare glass of beer Drugs: denies Family History: [place] Allergies No Known Allergies Allergy (Verified 05/08/18 06:17) HOME MEDICATIONS: Home Medications Medication Instructions Recorded Metoprolol Succinate [Toprol XL -] 25 mg PO BID PRN 01/30/15 called [facility] generic prozac 10mg for 60days by ([facility]) hydroxyzine 10mg qhs, q30 in Mar [address] Dr[address] Dean, [place] triamcilone cream 0.1% dr. dean in Mar, 454gm prednisone 10mg for [address] dean in Mar 2018 metoprolol suc 25mg 30tabs qdaily by Dr. Tonio barreto REVIEW OF SYSTEMS CONSTITUTIONAL: Absent: fever, chills, diaphoresis, generalized weakness, malaise, loss of appetite, weight change HEENT: Absent: rhinorrhea, nasal congestion, throat pain, throat swelling, difficulty swallowing, mouth swelling, ear pain, eye pain, visual changes CARDIOVASCULAR: Absent: chest pain, syncope, palpitations, irregular heart rate, lightheadedness , peripheral edema RESPIRATORY: Absent: cough, shortness of breath, dyspnea with exertion, orthopnea, wheezing, stridor, hemoptysis GASTROINTESTINAL: Absent: abdominal pain, abdominal distension, nausea, vomiting, diarrhea, constipation, melena, hematochezia GENITOURINARY: Absent: dysuria, frequency, urgency, hesitancy, hematuria, flank pain, genital pain MUSCULOSKELETAL: Absent: myalgia, arthralgia, joint swelling, back pain, neck pain SKIN: Absent: rash, itching, pallor HEMATOLOGIC/IMMUNOLOGIC: Absent: easy bleeding, easy bruising, lymphadenopathy, frequent infections ENDOCRINE: Absent: unexplained weight gain, unexplained weight loss, heat intolerance, cold intolerance NEUROLOGIC: Absent: headache, focal weakness or paresthesias, dizziness, unsteady gait, seizure, mental status changes, bladder or bowel incontinence PHYSICAL EXAMINATION Vital Signs - 24 hr 05/08/18 05:57 Temperature 98.1 F Pulse Rate 60 Respiratory 18 Rate Blood Pressure 190/92 H O2 Sat by Pulse 97 Oximetry (%) GENERAL: Awake, alert, in no acute distress. thin elderly man HEAD: Normal with no signs of trauma. EYES: Pupils equal, round and reactive to light, extraocular movements intact, sclera anicteric, conjunctiva clear. No lid lag. EARS, NOSE, THROAT: oropharynx clear without exudates. dry mucous membranes. NECK: Normal range of motion, supple without lymphadenopathy, JVD, or masses. LUNGS: anterior auscultation, breath sounds equal, clear to auscultation bilaterally. No wheezes, and no crackles. No accessory muscle use. HEART: Regular rate and rhythm, normal S1 and S2 without murmur, rub or gallop. ABDOMEN: Soft, nontender, not distended, normoactive bowel sounds, no guarding, no rebound, no masses. No hepatomegaly or splenomegaly. well healed abdominal scar MUSCULOSKELETAL: very tender left hip laterally and posteriorly, no movement due to pain, no swelling/erythem/ecchymosis. no tender left calf, no LE edema. flexing left ankle. does not want to move knee due to pain. left leg is rotated out and shorted than right right leg. wnl rom in right leg at hip/knee and ankle. No bony deformities or tenderness in right. UPPER EXTREMITIES: 2+ radial pulses, warm, well-perfused. No cyanosis. No clubbing. No peripheral edema. LOWER EXTREMITIES: 2+ DP pulses, warm, well-perfused. No calf tenderness. No peripheral edema. NEUROLOGICAL: Cranial nerves II-XII intact. Normal speech. 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 Good eye contact. Appropriate mood and affect. SKIN: Warm, dry, normal turgor, no rashes or lesions noted, normal capillary refill. in anterior examination Laboratory Results - last 24 hr 05/08/18 05/08/18 05/08/18 06:10 06:10 06:10 WBC 8.3 RBC 4.64 Hgb 14.5 Hct 41.4 MCV 89.3 MCH 31.3 MCHC 35.1 RDW 13.2 Plt Count 216 D MPV 8.2 Absolute Neuts (auto) 6.3 Neutrophils % 76.1 Lymphocytes % 13.9 Monocytes % 7.9 Eosinophils % 0.7 Basophils % 1.4 Nucleated RBC % 0 PT with INR 15.80 H INR 1.34 H Sodium 138 Potassium 4.1 Chloride 103 Carbon Dioxide 28 Anion Gap 8 BUN 16 Creatinine 0.9 Creat Clearance w eGFR > 60 Random Glucose 104 Calcium 8.3 L Total Bilirubin 0.6 AST 20 ALT 18 Alkaline Phosphatase 123 H Total Protein 6.6 Albumin 3.2 L Blood Type Antibody Screen 05/08/18 08:02 WBC RBC Hgb Hct MCV MCH MCHC RDW Plt Count MPV Absolute Neuts (auto) Neutrophils % Lymphocytes % Monocytes % Eosinophils % Basophils % Nucleated RBC % PT with INR INR Sodium Potassium Chloride Carbon Dioxide Anion Gap BUN Creatinine Creat Clearance w eGFR Random Glucose Calcium Total Bilirubin AST ALT Alkaline Phosphatase Total Protein Albumin Blood Type O POSITIVE Antibody Screen Negative ASSESSMENT/PLAN: 83 yr old man with hx of afib s/p ablation, recent stroke 1 month ago, presents with left femur fracture s/p mechanical fall on 04/29. #left femur fracture - ED discussed with Dr. Goldstein's ortho service, pt will be evaluated by KRISTAN Tomlinson for surgical intervention - keep NPO - EKG, Typ&screen, coags - pain control morphine 2mg q4hr prn, will start bowel regimen post-surgically - PT ordered preemptively, will need rehab placement at time of DC - DVt prophylaxis with SCDs for now - pt denies taking aspirin/NSAIDs this week, not listed by pharmacy #HTN - metoprolol succ 25mg po daily continue home medications when taking PO - prozac 10mg qdaily #Activity: continuous bedrest until cleared by ortho #Diet: npo for now #full code Visit type - Emergency Visit Emergency Visit: Yes ED Registration Date: 05/08/18 Care time: The patient presented to the Emergency Department on the above date and was hospitalized for further evaluation of their emergent condition. - New Patient This patient is new to me today: Yes Date on this admission: 05/08/18 - Critical Care Critical Care patient: No
[2018-05-08] MEDS ORDERED: MORPHINE SULFATE 2 MG/ML VIAL IVPUSH PRN (10:18)
--- NOTE | 2018-05-08 12:18 | CONSULT ---
Consult Reason for Consultation:: left hip fracture - History of Present Illness History of Present Illness: 83y/o male c/o left hip pain which began about 1 week ago and became increasing worse until yesterday when he was unable to walk. He presented to the ER this am and had a CT scan which showed a fracture of the hip. The pain is worse with movement of the LLE and better with rest. He denies any numbness or tingling. He has a history of a right PURA. - History Source History Provided By: Patient, Medical Record - Alcohol/Substance Use Hx Alcohol Use: No - Smoking History Smoking history: Former smoker Have you smoked in the past 12 months: No Aproximately how many cigarettes per day: 10 If you are a former smoker, when did you quit?: 2013 Home Medications - Allergies Allergies/Adverse Reactions: Allergies Allergy/AdvReac Type Severity Reaction Status Date / Time No Known Allergies Allergy Verified 05/08/18 06:17 - Home Medications Home Medications: Ambulatory Orders Fluoxetine HCl [Prozac] 10 mg PO DAILY 05/08/18 Metoprolol Succinate [Toprol Xl] 25 mg PO DAILY 05/08/18 Acetaminophen [Tylenol .Regular Strength -] 325 mg PO Q6H PRN tablet 05/11/18 Calcium 500Mg/Vit-D 200 Units [Os-Baljinder 500+D -] 1 tab PO BID tab 05/11/18 Docusate Sodium [Colace -] 100 mg PO TID capsule 05/11/18 Enoxaparin [Lovenox -] 40 mg SQ DAILY 28 Days disp.syrin 05/11/18 Polyethylene Glycol 3350 [Miralax 119 gm Btl -] 17 gm PO DAILY PRN bottle 05/11 Physical Exam Vital Signs: Vital Signs Temperature 98.1 F 05/08/18 05:57 Pulse Rate 60 05/08/18 05:57 Respiratory Rate 18 05/08/18 05:57 Blood Pressure 190/92 H 05/08/18 05:57 O2 Sat by Pulse Oximetry (%) 97 05/08/18 05:57 Constitutional: Yes: Well Nourished, No Distress, Calm HENT: Yes: Atraumatic, Normocephalic Musculoskeletal: Yes: Other (LLE: extremity is externally rotated. TTP along the hip. Pain with motion of the hip. Calf soft, nontender. Compartments soft. Negative jerald's sign. NVID.) Labs: CBC, BMP 05/08/18 06:10 05/08/18 06:10 Imaging - Results X-ray: Report Reviewed, Image Reviewed Cat Scan: Report Reviewed, Image Reviewed (Femoral neck fracture) Assessment/Plan #1 Left femoral neck fracture -Discussed today's findings and treatment options with the patient. Recommend hemiarthroplasty. Pt would like to proceed. Discussed case with Dr. Thomas. Will proceed tomorrow am. -NPO after midnight -Pain control -SCD's
--- NOTE | 2018-05-08 12:39 | EKG ---
Test Reason : Blood Pressure : / mmHG Vent. Rate : 055 BPM Atrial Rate : 055 BPM P-R Int : 140 ms QRS Dur : 082 ms QT Int : 444 ms P-R-T Axes : 081 077 084 degrees QTc Int : 424 ms POOR DATA QUALITY, INTERPRETATION MAY BE ADVERSELY AFFECTED SINUS BRADYCARDIA MINIMAL VOLTAGE CRITERIA FOR LVH, MAY BE NORMAL VARIANT BORDERLINE ECG Confirmed by MD ELLI, BRENT ([id number]) on 05/08/2018 12:39:13 PM Referred By: Confirmed By:BRENT CALLOWAY MD
[2018-05-08] MEDS ORDERED: LORazepam 2 MG/ML SDV VIAL ONE (13:29)
--- NOTE | 2018-05-08 15:20 | PN ---
Teaching Attending Note Name of Resident: Francesca Tom ATTENDING PHYSICIAN STATEMENT I saw and evaluated the patient. I reviewed the resident's note and discussed the case with the resident. I agree with the resident's findings and plan as documented with exceptions below. SUBJECTIVE: Patient with dementia, history per patient's Luis on the phone 83 yom with PMhx of perforated peptic ulcer s/p Partial Gastrectomy 20 years ago , Afib s/p ablation 03/2014, (on eliquis for 3 months then), ( denies any prior h/o DVT), recent CVA with left sided weakness in 01/2018, sent [facility], recently came home doing well, fell on his left hip on 04/29, ( confirms never hit his head), was seen in ED with no clear fracture on Hip xray, sent home has been having persistent left hip pain, with inability to move or walk around since then. Last night patient with worsening pain, unable to managed by at home, was brought to the ED and found with left femoral neck fracture on CT scan. Patient currently with left hip pain when moves. History limited by dementia. Unable to provide recollection of the events around the fall. called, patient with dementia since his stroke. Confirms fall on 04/29, none since and ongoing hip pain with inabilty to ambulate since. OBJECTIVE: Vital Signs Period Temp Pulse Resp BP Sys/Hernandez Pulse Ox Last 24 Hr 98.1 F-98.7 F 60-60 16-18 137-190/92-92 97-98 Intake & Output 05/05/18 05/06/18 05/07/18 05/08/18 23:59 23:59 23:59 23:59 Weight 130 lb GENERAL: Awake, alert,oriented to self, with few attempts,able to state is May 2018, in no acute distress. HEAD: Normal with no signs of trauma. EYES: Pupils equal, round and reactive to light, extraocular movements intact, sclera anicteric, conjunctiva clear. No lid lag. EARS, NOSE, THROAT: Ears normal, nares patent, oropharynx clear without exudates. dry lips and mucous membrane NECK: soft, supple, no JVD LUNGS: decreased effort, limited co-operation, no rales or wheezing appreciated. HEART: Regular rate and rhythm, normal S1 and S2 ABDOMEN: Soft, nontender, not distended, normoactive bowel sounds, no guarding, no rebound, no masses. MUSCULOSKELETAL: LLE shortened and externally rotated. UPPER EXTREMITIES: 2+ pulses, warm, well-perfused. No cyanosis. No clubbing. No peripheral edema. LOWER EXTREMITIES: LLE shortened and externally rotated, pos DP pulses NEUROLOGICAL: facial symmetry, able to move all extremities freely except LLE, further exam limited PSYCHIATRIC: Cooperative. Good eye contact. Appropriate mood and affect. SKIN: Warm, dry, normal turgor, no rashes or lesions noted, normal capillary refill. Home Medications Medication Instructions Recorded Fluoxetine HCl [Prozac] 10 mg PO DAILY 05/08/18 Metoprolol Succinate [Toprol Xl] 25 mg PO DAILY 05/08/18 Active Medications Dextrose/Sodium Chloride (D5-1/2ns -) 1,000 mls @ 75 mls/hr IV ASDIR KANA Metoprolol Succinate (Toprol Xl -) 25 mg PO DAILY K[facility] Morphine Sulfate (Morphine Sulfate) 1 mg IVPUSH Q4H PRN PRN Reason: PAIN LEVEL 6-10 Laboratory Results - last 24 hr 05/08/18 05/08/18 05/08/18 06:08 06:10 06:10 WBC 8.3 RBC 4.64 Hgb 14.5 Hct 41.4 MCV 89.3 MCH 31.3 MCHC 35.1 RDW 13.2 Plt Count 216 D MPV 8.2 Absolute Neuts (auto) 6.3 Neutrophils % 76.1 Lymphocytes % 13.9 Monocytes % 7.9 Eosinophils % 0.7 Basophils % 1.4 Nucleated RBC % 0 PT with INR 15.80 H INR 1.34 H PTT (Actin FS) 33.0 Sodium Potassium Chloride Carbon Dioxide Anion Gap BUN Creatinine Creat Clearance w eGFR Random Glucose Calcium Total Bilirubin AST ALT Alkaline Phosphatase Total Protein Albumin Blood Type Antibody Screen 05/08/18 05/08/18 06:10 08:02 WBC RBC Hgb Hct MCV MCH MCHC RDW Plt Count MPV Absolute Neuts (auto) Neutrophils % Lymphocytes % Monocytes % Eosinophils % Basophils % Nucleated RBC % PT with INR INR PTT (Actin FS) Sodium 138 Potassium 4.1 Chloride 103 Carbon Dioxide 28 Anion Gap 8 BUN 16 Creatinine 0.9 Creat Clearance w eGFR > 60 Random Glucose 104 Calcium 8.3 L Total Bilirubin 0.6 AST 20 ALT 18 Alkaline Phosphatase 123 H Total Protein 6.6 Albumin 3.2 L Blood Type O POSITIVE Antibody Screen Negative CT LE results reviewed CXR no acute process LE duplex neg for DVT EKG sinus bradycardia 55, LVH ASSESSMENT AND PLAN: 83 yom with PMhx of perforated peptic ulcer s/p Partial Gastrectomy 20 years ago , Afib s/p ablation 03/2014, (on eliquis for 3 months then), recent CVA with left sided weakness in 01/2018, sent [facility], recent came home, s/ p fall now with left femoral neck fracture -Left femoral neck fracture -Mechanical fall -Atrial fibrillation s/p ablation 03/2014 -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 Plan for left hemiarthroplasty tomorrow. NPO after midnight. heparin subq x 1 now, then hold pre-op. pain control with morphine/tylenol. NWB LLE Continue metoprolol/prozac/melatonin. No clinical evidence of CHF/VA or active ischemia or concerns. Patient intermediate risk from cardiovascular standpoint for urgent level surgery. Risks of withholding surgery higher. High risk for post operative delirium, will need behavioral interventions, PT/ early mobilization, incentive spirometry. Dispo anticipate will need rehab. Code status full Plan discussed with in detail on phone, all questions answered. Total admit time spent 65 min.
[2018-05-08] MEDS ORDERED: HEPARIN NA (PORCINE) 5,000 UNITS/ML 1ML VIAL SQ ONE (15:24)
[2018-05-08] MEDS: metoPROLOL SUCCINATE 25 MG TAB.SR.24H (FP) PO SCH (16:35)
[2018-05-08] MEDS: DEXTROSE 5%-0.45% SALINE 1,000 ML IV SCH (16:36)
[2018-05-08 16:50] VITALS: BMI 15.7
[2018-05-08] MEDS: MORPHINE SULFATE 2 MG/ML VIAL IVPUSH PRN ×2 (17:10→22:46)
[2018-05-08 21:05] LABS: URINE APPEARANCE CLEAR; URINE BILIRUBIN NEGATIVE (<2.0 mg/dL); URINE COLOR LTYELLOW; URINE GLUCOSE (UA) NEGATIVE (NEGATIVE); URINE KETONE NEGATIVE (NEGATIVE); URINE LEUK ESTERASE NEGATIVE (NEGATIVE); URINE NITRITE NEGATIVE (NEGATIVE); URINE PROTEIN NEGATIVE (NEGATIVE); URINE UROBILINOGEN NEGATIVE mg/dL (0.2-1.0)
[2018-05-09] MEDS: DEXTROSE 5%-0.45% SALINE 1,000 ML IV SCH (02:31)
[2018-05-09] MEDS: MORPHINE SULFATE 2 MG/ML VIAL IVPUSH PRN ×2 (02:46→06:47)
[2018-05-09] MEDS ORDERED: BUPIVACAINE HCL/PF 0.5% (5MG/ML) 10 ML VIAL ONE (09:31)
--- NOTE | 2018-05-09 09:55 | OP ---
Operative Note - Note: Operative Date: 05/09/18 Pre-Operative Diagnosis: left subcapital hip fracture Operation: left hip hemiarthroplasty Implants: Depuy cemented stem size 5. 53mm neck. -3mm head Post-Operative Diagnosis: Same as Pre-op Surgeon: Pedro Luis Thomas Ged Preparation Teacher: Ag Tomlinson Anesthesia: Spinal Operative Report Dictated: Yes
[2018-05-09] MEDS ORDERED: FLUoxetine HCL 10 MG CAPSULE (FP) PO SCH (10:00)
[2018-05-09] MEDS ORDERED: ceFAZolin SODIUM 1 GM VIAL IVPB ONE ×2 (10:05→10:10)
--- NOTE | 2018-05-09 11:05 | CONS ---
DATE OF CONSULTATION: DATE OF DICTATION: 05/09/2018 SUBJECTIVE: Patient lying in bed, notes pain only in hip area. OBJECTIVE: Vital Signs: Patient is afebrile, vital signs are stable. He has regular respirations. General: There is a normal affect. He is somewhat forgetful. Extremities: Examination of the left lower extremity demonstrates no skin lesions. The knee is nontender. The ankle is nontender. There is pain with any range of motion of the hip. Calves are soft and nontender. Two-plus DP pulses in the left. EHL, FHL are intact. Radiographs, including plain films and CT scan, are reviewed. There was previous impacted femoral head fracture, which subsequently displaced. While CT scan is not definitive for this, there may have been a sclerotic lesion within the head, which leaves the possibility open to pathologic fracture. ASSESSMENT: Left femoral head fracture. PLAN: I reviewed today's findings with the patient as well as his family. I addressed that there is a displaced fracture at the lower end of the femoral head and upright of the femoral neck. In order to best treat this, I believe hemiarthroplasty is the best options. We discussed the option of nonoperative care. We discussed the option of total hip. We reviewed surgical risks in detail, including bleeding, infection, neurovascular injury, need for further surgery, postoperative pain and stiffness, periprosthetic fracture or loosening, hip instability, limb length or rotational discrepancy. We discussed medical risks, such as heart attack, stroke, DVT, PE, and . I addressed the use of perioperative DVT and antibiotic prophylaxis. I reviewed the postoperative rehabilitation protocol. I addressed all the patient's and his family's questions and concerns. They voiced understanding and he will be brought to the operating room later today. MIRELLA MCMANUS M.D. [id number]
[2018-05-09] MEDS ORDERED: ONDANSETRON 4 MG/2 ML VIAL IVPUSH PRN ×2 (11:33→14:17)
[2018-05-09] MEDS ORDERED: TRANEXAMIC ACID 1000 MG/10 ML VIAL IVPUSH ONE (11:44)
[2018-05-09] MEDS ORDERED: LACTATED RINGERS SOLUTION 1,000 ML IV SCH ×3 (11:45→18:54)
[2018-05-09] MEDS ORDERED: ACETAMINOPHEN 1000 MG/100 ML VIAL (NON FORMULARY) IVPB ONE ×2 (12:11→14:19)
[2018-05-09] MEDS ORDERED: ACETAMINOPHEN INJECTION 100 ML IVPB ONE (13:04)
--- NOTE | 2018-05-09 13:13 | PN ---
Physical Exam: SUBJECTIVE: Patient seen and examined, left hip pain, on his way to OR, family at bedside. OBJECTIVE: Vital Signs Period Temp Pulse Resp BP Sys/Hernandez Pulse Ox Last 24 Hr 97.6 F-98.7 F 60-69 16-20 111-151/70-102 98-[address] seen [address] his way to OR at 8:50 AM GENERAL:awake, oriented, no acute distress Neck: soft,supple, no JVD Abdomen:Soft, Nt, ND Extremities: LLE shortened, externally rotated CVS: S1S2 regular Laboratory Results - last 24 hr 05/08/18 07:03 Urine Color Ltyellow Urine Appearance Clear Urine pH 6.0 Ur Specific [place] 1.012 Urine Protein Negative Urine Glucose (UA) Negative Urine Ketones Negative Urine Blood Negative Urine Nitrite Negative Urine Bilirubin Negative Urine Urobilinogen Negative Ur Leukocyte Esterase Negative Active Medications Generic Name Dose Route Start Last Admin Trade Name Freq PRN Reason Stop Dose Admin Acetaminophen 650 mg 05/09/18 12:37 Tylenol - PO Q6H PRN PAIN LEVEL 1 - 3 Acetaminophen 325 mg 05/09/18 12:46 Tylenol - PO 05/10/18 12:45 Q6H PRN PAIN 4-6 Calcium Carbonate/Cholecalciferol 1 tab 05/09/18 22:00 Os-Baljinder 500+D - PO BID [facility] Docusate Sodium 100 mg 05/09/18 14:00 Colace - PO TID KANA Enoxaparin Sodium 40 mg 05/10/18 10:00 Lovenox - SQ DAILY [facility] Ferrous Sulfate 325 mg 05/09/18 17:30 Feosol - PO BIDWM [facility] Fluoxetine HCl 10 mg 05/10/18 10:00 Prozac - PO DAILY [facility] Cefazolin Sodium 1 gm in 50 mls @ 100 mls/hr 05/09/18 18:00 Ancef 1 Gm Premixed Ivpb - IVPB 05/10/18 17:59 Q8H-IV KANA Metoprolol Succinate 25 mg 05/10/18 10:00 Toprol Xl - PO DAILY KANA Oxycodone HCl 5 mg 05/09/18 12:46 Roxicodone - PO 05/10/18 12:45 Q6H PRN PAIN 4-6 ASSESSMENT/PLAN: 83 yom with PMhx of perforated peptic ulcer s/p Partial Gastrectomy 20 years ago , Afib s/p ablation 03/2014, (on eliquis for 3 months then), recent CVA with left sided weakness in 01/2018, sent [facility], recent came home, s/ p fall now with left femoral neck fracture -Left femoral neck fracture s/p left hip hemiarthroplasty 05/09 -Mechanical fall -Atrial fibrillation s/p ablation 03/2014 -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 Lovenox per ortho. Monitor h/h. Pain control with oxycodone/Tylenol prn. Weight bearing per ortho. Continue metoprolol/prozac/melatonin. PT eval, incentive spirometry, bowel regimen. Dispo to rehab in 1-2 days if no events. Code status full Visit type - Emergency Visit Emergency Visit: Yes ED Registration Date: 05/08/18 Care time: The patient presented to the Emergency Department on the above date and was hospitalized for further evaluation of their emergent condition. - New Patient This patient is new to me today: No - Critical Care Critical Care patient: No - Discharge Referral Referred to [facility] No
[2018-05-09] MEDS ORDERED: POLYETHYLENE GLYCOL 3350 119 GM BTL PO PRN (13:18)
[2018-05-09 16:29] LABS: BASO % 0.5 % (0-2.0); EOS % 1.1 % (0-4.5); HEMATOCRIT 38.2 % (35.4-49); HEMOGLOBIN 13.4 GM/dL (11.7-16.9); LYMPH % 10.8 % (8-40); MCH 31.8 pg (25.7-33.7); MCHC 35.1 g/dl (32.0-35.9); MEAN CELL VOLUME 90.5 fl (80-96); MEAN PLT VOLUME 8.6 fl (7.5-11.1); MONO % 9.3 % (3.8-10.2); NEUT % 78.3 % (42.8-82.8); PLATELET COUNT 197 K/MM3 (134-434); RBC 4.23 M/mm3 (4.00-5.60); RDW 13.2 % (11.9-15.9); WHITE BLOOD COUNT 10.2 K/mm3 (4.0-10.0)
[2018-05-09] MEDS: DOCUSATE SODIUM 100 MG CAPSULE (FP) PO SCH ×2 (16:43→21:54)
[2018-05-09] MEDS: metoPROLOL SUCCINATE 25 MG TAB.SR.24H (FP) PO SCH (16:46)
[2018-05-09] MEDS: CEFAZOLIN 1 GM/D5W 1 GM/50 ML BAG IVPB SCH (18:05)
[2018-05-09] MEDS: FERROUS SO4 325 MG TABLET (FP) PO SCH (18:06)
[2018-05-09 18:08] LABS: GLUCOSE,RANDOM 85 mg/dL (74-106)
[2018-05-09 18:09] LABS: ANION GAP 4 MMOL/L (8-16); BLOOD UREA NITROGEN 16 mg/dL (7-18); CALCIUM 8.1 mg/dL (8.5-10.1); CHLORIDE 103 mmol/L (98-107); CO2 31 mmol/L (21-32); CREATININE 0.8 mg/dL (0.55-1.3); MAGNESIUM 2.2 mg/dL (1.8-2.4); PHOSPHOROUS 3.8 mg/dL (2.5-4.9); POTASSIUM 4.2 mmol/L (3.5-5.1); SODIUM 138 mmol/L (136-145)
[2018-05-09] MEDS: CALCIUM 500MG/VIT-D 200 UNITS COMBO TABLET (FP) PO SCH (21:54)
[2018-05-09] MEDS: ACETAMINOPHEN 325 MG TABLET (FP) PO PRN (21:55)
[2018-05-09] MEDS: oxyCODONE HCL 5 MG TABLET PO PRN (21:55)
[2018-05-10] MEDS: CEFAZOLIN 1 GM/D5W 1 GM/50 ML BAG IVPB SCH ×2 (01:40→10:27)
[2018-05-10] MEDS: ACETAMINOPHEN 325 MG TABLET (FP) PO PRN ×4 (04:30→23:42)
[2018-05-10] MEDS: oxyCODONE HCL 5 MG TABLET PO PRN ×2 (04:31→10:19)
[2018-05-10] MEDS: DOCUSATE SODIUM 100 MG CAPSULE (FP) PO SCH ×3 (06:27→21:26)
[2018-05-10 07:39] LABS: PHOSPHOROUS 3.3 mg/dL (2.5-4.9)
[2018-05-10] MEDS: FERROUS SO4 325 MG TABLET (FP) PO SCH ×2 (08:20→17:17)
[2018-05-10 08:25] LABS: BASO % 0.4 % (0-2.0); EOS % 0.7 % (0-4.5); HEMATOCRIT 37.6 % (35.4-49); HEMOGLOBIN 13.4 GM/dL (11.7-16.9); LYMPH % 11.3 % (8-40); MCH 31.8 pg (25.7-33.7); MCHC 35.6 g/dl (32.0-35.9); MEAN CELL VOLUME 89.2 fl (80-96); MEAN PLT VOLUME 8.7 fl (7.5-11.1); MONO % 10.4 % (3.8-10.2); NEUT % 77.2 % (42.8-82.8); PLATELET COUNT 209 K/MM3 (134-434); RBC 4.21 M/mm3 (4.00-5.60); RDW 12.8 % (11.9-15.9)
--- NOTE | 2018-05-10 08:36 | PN ---
Progress Note, Physician Chief Complaint: S/p left hip hemiarthorplasty post op day one. History of Present Illness: under spinal anesthesia - Current Medication List Current Medications: Active Medications Acetaminophen (Tylenol -) 650 mg PO Q6H PRN PRN Reason: PAIN LEVEL 1 - 3 Acetaminophen (Tylenol -) 325 mg PO Q6H PRN PRN Reason: PAIN 4-6 Stop: 05/10/18 12:45 Last Admin: 05/10/18 04:30 Dose: 325 mg Calcium Carbonate/Cholecalciferol (Os-Balijnder 500+D -) 1 tab PO BID [facility] Last Admin: 05/09/18 21:54 Dose: 1 tab Docusate Sodium (Colace -) 100 mg PO TID [facility] Last Admin: 05/10/18 06:27 Dose: 100 mg Enoxaparin Sodium (Lovenox -) 40 mg SQ DAILY [facility] Ferrous Sulfate (Feosol -) 325 mg PO BIDWM [facility] Last Admin: 05/09/18 18:06 Dose: 325 mg Fluoxetine HCl (Prozac -) 10 mg PO DAILY [facility] Cefazolin Sodium (Ancef 1 Gm Premixed Ivpb -) 1 gm in 50 mls @ 100 mls/hr IVPB Q8H-IV [facility] Stop: 05/10/18 17:59 Last Admin: 05/10/18 01:40 Dose: 100 mls/hr Lactated Ringer's (Lactated Ringers Solution) 1,000 mls @ 75 mls/hr IV ASDIR [facility] Last Admin: 05/09/18 21:56 Dose: 75 mls/hr Metoprolol Succinate (Toprol Xl -) 25 mg PO DAILY [facility] Ondansetron HCl (Zofran Injection) 4 mg IVPUSH Q6H PRN PRN Reason: NAUSEA AND/OR VOMITING Oxycodone HCl (Roxicodone -) 5 mg PO Q6H PRN PRN Reason: PAIN 4-6 Stop: 05/10/18 12:45 Last Admin: 05/10/18 04:31 Dose: 5 mg Polyethylene Glycol (Miralax (For Daily Use) -) 17 gm PO DAILY PRN PRN Reason: CONSTIPATION - Objective Vital Signs: Vital Signs Temperature 98.1 F 05/10/18 06:00 Pulse Rate 74 05/10/18 06:00 Respiratory Rate 18 05/10/18 06:00 Blood Pressure 119/70 05/10/18 06:00 O2 Sat by Pulse Oximetry (%) 100 05/09/18 21:00 Constitutional: Yes: Well Nourished Cardiovascular: Yes: WNL Respiratory: Yes: WNL Gastrointestinal: Yes: WNL Labs: CBC, BMP 05/10/18 06:00 05/09/18 15:32 INR, PTT INR 1.34 (0.83-1.09) H 05/08/18 06:10 Assessment/Plan pain controlled, no nausea or vomiting, no anesthetic complications, will sign off care at this time.
[2018-05-10] MEDS: ENOXAPARIN NA (PORCINE) 40 MG/0.4 ML DISP.SYRIN SQ SCH (10:19)
[2018-05-10] MEDS: CALCIUM 500MG/VIT-D 200 UNITS COMBO TABLET (FP) PO SCH ×2 (10:19→21:26)
[2018-05-10] MEDS: metoPROLOL SUCCINATE 25 MG TAB.SR.24H (FP) PO SCH (10:19)
[2018-05-10] MEDS ORDERED: PT OWN MED DRAWER 7, Y5N ONE (10:22)
[2018-05-10] MEDS: FLUoxetine HCL 10 MG CAPSULE (FP) PO SCH (10:28)
--- NOTE | 2018-05-10 11:20 | PN ---
Teaching Attending Note Name of Resident: Monet Obando ATTENDING PHYSICIAN STATEMENT I saw and evaluated the patient. I reviewed the resident's note and discussed the case with the resident. I agree with the resident's findings and plan as documented with exceptions below. SUBJECTIVE: patient seen and examined. left hip pain, no complaints otherwise. OBJECTIVE: Vital Signs Period Temp Pulse Resp BP Sys/Hernandez Pulse Ox Last 24 Hr 97.6 F-98.9 F 49-79 14-19 100-129/55-86 95-100 Intake & Output 05/07/18 05/08/18 05/09/18 05/10/18 23:59 23:59 23:59 23:59 Intake Total 800 1150 Output Total 600 375 Balance 200 775 Weight 123 lb General: sitting in bed in no acute distress Chest: decreased effort, no rales or wheezing Abdomen:Soft, NT, ND Extremities: LLE clean dressing, positive pulses, no edema Home Medications Medication Instructions Recorded Fluoxetine HCl [Prozac] 10 mg PO DAILY 05/08/18 Metoprolol Succinate [Toprol Xl] 25 mg PO DAILY 05/08/18 Active Medications Acetaminophen (Tylenol -) 650 mg PO Q6H PRN PRN Reason: PAIN LEVEL 1 - 3 Acetaminophen (Tylenol -) 325 mg PO Q6H PRN PRN Reason: PAIN 4-6 Stop: 05/10/18 12:45 Last Admin: 05/10/18 10:20 Dose: 325 mg Calcium Carbonate/Cholecalciferol (Os-Baljinder 500+D -) 1 tab PO BID [facility] Last Admin: 05/10/18 10:19 Dose: 1 tab Docusate Sodium (Colace -) 100 mg PO TID [facility] Last Admin: 05/10/18 06:27 Dose: 100 mg Enoxaparin Sodium (Lovenox -) 40 mg SQ DAILY [facility] Last Admin: 05/10/18 10:19 Dose: 40 mg Ferrous Sulfate (Feosol -) 325 mg PO BIDWM [facility] Last Admin: 05/10/18 08:20 Dose: 325 mg Fluoxetine HCl (Prozac -) 10 mg PO DAILY [facility] Last Admin: 05/10/18 10:28 Dose: 10 mg Cefazolin Sodium (Ancef 1 Gm Premixed Ivpb -) 1 gm in 50 mls @ 100 mls/hr IVPB Q8H-IV [facility] Stop: 05/10/18 17:59 Last Admin: 05/10/18 10:27 Dose: 100 mls/hr Lactated Ringer's (Lactated Ringers Solution) 1,000 mls @ 75 mls/hr IV ASDIR [facility] Last Admin: 05/09/18 21:56 Dose: 75 mls/hr Metoprolol Succinate (Toprol Xl -) 25 mg PO DAILY [facility] Last Admin: 05/10/18 10:19 Dose: 25 mg Ondansetron HCl (Zofran Injection) 4 mg IVPUSH Q6H PRN PRN Reason: NAUSEA AND/OR VOMITING Oxycodone HCl (Roxicodone -) 5 mg PO Q6H PRN PRN Reason: PAIN 4-6 Stop: 05/10/18 12:45 Last Admin: 05/10/18 10:19 Dose: 5 mg Polyethylene Glycol (Miralax (For Daily Use) -) 17 gm PO DAILY PRN PRN Reason: CONSTIPATION Laboratory Results - last 24 hr 05/09/18 05/09/18 05/10/18 15:32 15:32 06:00 WBC 10.2 H 9.0 RBC 4.23 4.21 Hgb 13.4 13.4 Hct 38.2 37.6 MCV 90.5 89.2 MCH 31.8 31.8 MCHC 35.1 35.6 RDW 13.2 12.8 Plt Count 197 209 MPV 8.6 8.7 Absolute Neuts (auto) 8.0 6.9 Neutrophils % 78.3 77.2 Lymphocytes % 10.8 D 11.3 Monocytes % 9.3 10.4 H Eosinophils % 1.1 0.7 Basophils % 0.5 0.4 Nucleated RBC % 0 0 Sodium 138 Potassium 4.2 Chloride 103 Carbon Dioxide 31 Anion Gap 4 L BUN 16 Creatinine 0.8 Creat Clearance w eGFR > 60 Random Glucose 85 Calcium 8.1 L Phosphorus 3.8 Magnesium 2.2 05/10/18 06:00 WBC RBC Hgb Hct MCV MCH MCHC RDW Plt Count MPV Absolute Neuts (auto) Neutrophils % Lymphocytes % Monocytes % Eosinophils % Basophils % Nucleated RBC % Sodium Potassium Chloride Carbon Dioxide Anion Gap BUN Creatinine Creat Clearance w eGFR Random Glucose Calcium Phosphorus 3.3 Magnesium 2.0 ASSESSMENT AND PLAN: 83 yom with PMhx of perforated peptic ulcer s/p Partial Gastrectomy 20 years ago , Afib s/p ablation 03/2014, (on eliquis for 3 months then), recent CVA with left sided weakness in 01/2018, sent [facility], recent came home, s/ p fall now with left femoral neck fracture -Left femoral neck fracture s/p left hip hemiarthroplasty 05/09 -Mechanical fall -Atrial fibrillation s/p ablation 03/2014 -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 Monitor h/h. Pain control with oxycodone/Tylenol prn. Weight bearing per ortho. Continue metoprolol/prozac/melatonin. PT eval, incentive spirometry, bowel regimen. Dispo to rehab in 24 hours pending PT eval and clinical improvement. Code status full Plan discussed with nursing, all questions answered.
--- NOTE | 2018-05-10 11:47 | PN ---
Physical Exam: SUBJECTIVE: Patient seen and examined at bed side this morning. No complaints. No numbness, tingling, chest pain, sob, cough, palpitation, abdominal pain, nausea or vomiting. No acute overnight events. OBJECTIVE: Vital Signs Period Temp Pulse Resp BP Sys/Hernandez Pulse Ox Last 24 Hr 97.6 F-98.9 F 49-79 14-19 100-129/55-86 95-100 GENERAL: Elderly male, sitting in bed comfortably, is awake, alert, and fully oriented, in no acute distress. EYES:EOM intact, no pallor or icterus. NECK: Supple, no JVD. LUNGS: B/L Breath sounds equal, no wheeze or crackles. HEART: Regular rate and rhythm, S1, S2 without murmur. ABDOMEN: Soft, nontender, no organomegaly. UPPER EXTREMITIES: 2+ pulses, warm, well-perfused, no edema. LOWER EXTREMITIES: Left hip: clean dressing, no hematoma, no erythema, DP, PT pulses intact. Right ext: normal. NEUROLOGICAL: No facial droop, Normal speech, gait not observed. PSYCH: Normal mood, normal affect. SKIN: Warm, dry, normal turgor, no rashes or lesions noted Laboratory Results - last 24 hr 05/09/18 05/09/18 05/10/18 15:32 15:32 06:00 WBC 10.2 H 9.0 RBC 4.23 4.21 Hgb 13.4 13.4 Hct 38.2 37.6 MCV 90.5 89.2 MCH 31.8 31.8 MCHC 35.1 35.6 RDW 13.2 12.8 Plt Count 197 209 MPV 8.6 8.7 Absolute Neuts (auto) 8.0 6.9 Neutrophils % 78.3 77.2 Lymphocytes % 10.8 D 11.3 Monocytes % 9.3 10.4 H Eosinophils % 1.1 0.7 Basophils % 0.5 0.4 Nucleated RBC % 0 0 Sodium 138 Potassium 4.2 Chloride 103 Carbon Dioxide 31 Anion Gap 4 L BUN 16 Creatinine 0.8 Creat Clearance w eGFR > 60 Random Glucose 85 Calcium 8.1 L Phosphorus 3.8 Magnesium 2.2 05/10/18 06:00 WBC RBC Hgb Hct MCV MCH MCHC RDW Plt Count MPV Absolute Neuts (auto) Neutrophils % Lymphocytes % Monocytes % Eosinophils % Basophils % Nucleated RBC % Sodium Potassium Chloride Carbon Dioxide Anion Gap BUN Creatinine Creat Clearance w eGFR Random Glucose Calcium Phosphorus 3.3 Magnesium 2.0 Active Medications Generic Name Dose Route Start Last Admin Trade Name Freq PRN Reason Stop Dose Admin Acetaminophen 650 mg 05/09/18 12:37 Tylenol - PO Q6H PRN PAIN LEVEL 1 - 3 Acetaminophen 325 mg 05/09/18 12:46 05/10/18 10:20 Tylenol - PO 05/10/18 12:45 325 mg Q6H PRN Administration PAIN 4-6 Calcium Carbonate/Cholecalciferol 1 tab 05/09/18 22:00 05/10/18 10:19 Os-Baljinder 500+D - PO 1 tab BID KANA Administration Docusate Sodium 100 mg 05/09/18 14:00 05/10/18 06:27 Colace - PO 100 mg TID KANA Administration Enoxaparin Sodium 40 mg 05/10/18 10:00 05/10/18 10:19 Lovenox - SQ 40 mg DAILY KANA Administration Ferrous Sulfate 325 mg 05/09/18 17:30 05/10/18 08:20 Feosol - PO 325 mg BIDWM KANA Administration Fluoxetine HCl 10 mg 05/10/18 10:00 05/10/18 10:28 Prozac - PO 10 mg DAILY KANA Administration Cefazolin Sodium 1 gm in 50 mls @ 100 mls/hr 05/09/18 18:00 05/10/18 10:27 Ancef 1 Gm Premixed Ivpb - IVPB 05/10/18 17:59 100 mls/hr Q8H-IV KANA Administration Metoprolol Succinate 25 mg 05/10/18 10:00 05/10/18 10:19 Toprol Xl - PO 25 mg DAILY KANA Administration Ondansetron HCl 4 mg 05/09/18 14:17 Zofran Injection IVPUSH Q6H PRN NAUSEA AND/OR VOMITING Oxycodone HCl 5 mg 05/09/18 12:46 05/10/18 10:19 Roxicodone - PO 05/10/18 12:45 5 mg Q6H PRN Administration PAIN 4-6 Polyethylene Glycol 17 gm 05/09/18 13:18 Miralax (For Daily Use) - PO DAILY PRN CONSTIPATION ASSESSMENT/PLAN: Patient is an 83 year old male PMhx of perforated peptic ulcer s/p Partial Gastrectomy 20 years ago, Afib s/p ablation 03/2014, (on eliquis for 3 months then), recent CVA with left sided weakness in 01/2018, sent [facility], recent came home, s/p fall now with left femoral neck fracture. # Left femoral neck fracture s/p left hip hemiarthroplasty on 05/09/18-POD 1 No surgical complications, patient tolerated well after surgery, pain well controlled with PO Tylenol Cefazolin for empirical treatment. DVT prophylaxis with Lovenox 40 mg sq daily PT done today, weight bearing exercise as per ortho Incentive spirometry Fall precautions Cox discontinued today. 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 # PUD s/p partial gastrectomy 20 years ago # Depression: Continue Fluoxetine 10mg PO daily # FEN Not on IV fluids, tolerating PO Electrolytes WNL Regular Diet # Prophylaxis For DVT: On Lovenox 40 mg sq daily For GI: Not indicated # Code Status: Full Code # Dispo: D/c planning in AM. Illness, Investigation and plan of care explained to the patient. He verbalized understanding. Case discussed with Dr. Thorne. Visit type - Emergency Visit Emergency Visit: Yes ED Registration Date: 05/08/18 Care time: The patient presented to the Emergency Department on the above date and was hospitalized for further evaluation of their emergent condition. - New Patient This patient is new to me today: Yes Date on this admission: 05/10/18 - Critical Care Critical Care patient: No - Discharge Referral Referred to [facility] Med P.C.: No
--- NOTE | 2018-05-10 13:36 | OP ---
DATE OF OPERATION: 05/09/2018 PREOPERATIVE DIAGNOSIS: Displaced left subcapital hip fracture. POSTOPERATIVE DIAGNOSIS: Displaced left subcapital hip fracture. PROCEDURE: Left hip hemiarthroplasty. SURGEON: Pedro Luis Thomas MD BUILDING MECHANIC: KRISTAN Falcon, whose skillful assistance was necessary for the safe and timely performance of this procedure. Mr. Tomlinson was able to provide limb positioning, traction, assist in the excision of the old femoral neck and head, as well as the insertion and fixation of orthopedic hardware. ANESTHESIA: Spinal. POSTOPERATIVE CONDITION: Stable. COMPLICATIONS: None. BLOOD LOSS: 125 mL. IMPLANTS: DePuy cemented stem, size 5, with 53-mm monopolar head and -3 mm neck spacer. INDICATIONS: This is a pleasant 83-year-old gentleman who suffered a fall. He was initially seen in the ER, where radiographs had shown an impacted fracture. The patient continued to ambulate on the fracture and it displaced. Given the displacement present, it was felt that hemiarthroplasty was the correct indicated procedure. Treatment alternatives were discussed, including nonoperative care, total hip arthroplasty. I reviewed the procedure in detail. I discussed the use of perioperative antibiotic and DVT prophylaxis. I discussed surgical risks, including bleeding, infection, neurovascular injury, postoperative pain and stiffness, periprosthetic fracture or loosening, leg length discrepancy, rotational deformity, hip instability. We discussed medical risks such as heart attack, stroke, DVT, PE, and . We discussed the rehabilitation course after the surgery. I addressed all of the patient's and his family's questions and concerns. They voiced understanding and elected to proceed. PROCEDURE: The patient was brought to the operating room, where spinal anesthesia was administered. The left lower extremity was then prepped and draped in the usual sterile fashion. A preoperative dose of antibiotics given and the usual timeout procedure was performed. An incision was now planned out over the trochanter. This was carried down through skin to subcutaneous tissue. Blunt spreading was used to identify the fascia. Electrocautery was used to maintain hemostasis. The fascia was then split in line with the limb using Metzenbaum scissors. The bursa was now reflected to expose the greater trochanter. The limb was now gently internally rotated and using electrocautery, I posteriorly elevated the capsule and external rotators as a single layer. The fracture was now identified. Neck cutting jig was inserted and a 45-degree neck cut was made. The neck fragment was excised. The capsule was now tagged using number 1 Vicryl sutures. The corkscrew device was now inserted into the femoral head and it was removed. It was measured and a 53-mm size was chosen. The box osteotome was now used to gain lateral entry into the femoral canal. Canal finder was then passed. The lateralizer was passed to gain good lateral entry. Broaching was then started, going up to a size 5 broach was used when good fit was achieved. The broach was now removed. The canal was prepared. A cement restrictor was inserted. Cement was now injected in the canal. The final component was inserted, size 5, and the cement was allowed to harden. The trial components were now loaded onto the stem, -3, with a 53-mm head. This was reduced and good suction seal was achieved. There was good stability noted anteriorly and posteriorly. There was reasonable tension on a shock test. The trial components were now dislocated. The Rodriguez taper was pulse lavaged as well as the acetabulum. Final components were now malleted into place with the Rodriguez taper. The hip was reduced and again passed through a range of motion and found to be stable. The hip was again pulse lavaged. Suture holes were now made in the posterior aspect of the greater trochanter. The previously passed number 1 Vicryl sutures were then tied. This completed the external rotator and capsular repair. The wound was again pulse lavaged. The fascia was now closed using number 1 Vicryl as well as 0 Vicryl. TXA was now injected deep to the fascial layer. This was to aide in hemostasis. The subcutaneous tissue was approximated using a V-Loc suture. Skin was closed using a 3-0 nylon suture. Sterile dressings were placed. The patient was placed with an abduction pillow. He was transferred to the recovery room in stable condition. Neal PEPPER/[id number] MTDD
[2018-05-10] MEDS ORDERED: POLYETHYLENE GLYCOL 3350 119 GM BTL PO ONE (16:14)
--- NOTE | 2018-05-10 18:42 | PN ---
Progress Note (short form) - Note Progress Note: Pt lying comf in bed Pain controlled Last Vital Signs Temp Pulse Resp BP Pulse Ox 98.7 F 81 18 106/62 100 05/10/18 15:29 05/10/18 15:29 05/10/18 15:29 05/10/18 15:29 05/10/18 09:00 LLE dressing cdi calves soft NT EHL FHL TA G S 5/5 Sens int to LT 2+ DP Laboratory Results - last 24 hr 05/10/18 05/10/18 06:00 06:00 WBC 9.0 RBC 4.21 Hgb 13.4 Hct 37.6 MCV 89.2 MCH 31.8 MCHC 35.6 RDW 12.8 Plt Count 209 MPV 8.7 Absolute Neuts (auto) 6.9 Neutrophils % 77.2 Lymphocytes % 11.3 Monocytes % 10.4 H Eosinophils % 0.7 Basophils % 0.4 Nucleated RBC % 0 Phosphorus 3.3 Magnesium 2.0 a/p POD 1 L hip rena -pt doing well -f/u AM cbc -hip precautions -dvt proph to cont 1 mo post op -PT -dispo planning, ok to dc tomorrow to SNF if HCT stable -plan to follow up 2-3 weeks in office
[2018-05-11] MEDS: DOCUSATE SODIUM 100 MG CAPSULE (FP) PO SCH ×3 (05:09→16:14)
[2018-05-11 06:22] LABS: HEMATOCRIT 36.2 % (35.4-49); HEMOGLOBIN 11.9 GM/dL (11.7-16.9); MCH 29.6 pg (25.7-33.7); MEAN CELL VOLUME 89.9 fl (80-96); MEAN PLT VOLUME 8.1 fl (7.5-11.1); PLATELET COUNT 189 K/MM3 (134-434); RBC 4.03 M/mm3 (4.00-5.60); RDW 13.1 % (11.9-15.9)
[2018-05-11] MEDS ORDERED: PT OWN MED DRAWER 7, Y5N ONE (10:09)
[2018-05-11] MEDS: metoPROLOL SUCCINATE 25 MG TAB.SR.24H (FP) PO SCH (10:37)
[2018-05-11] MEDS: FERROUS SO4 325 MG TABLET (FP) PO SCH ×2 (10:37→18:23)
[2018-05-11] MEDS: ENOXAPARIN NA (PORCINE) 40 MG/0.4 ML DISP.SYRIN SQ SCH (10:37)
[2018-05-11] MEDS: CALCIUM 500MG/VIT-D 200 UNITS COMBO TABLET (FP) PO SCH (10:37)
[2018-05-11] MEDS: FLUoxetine HCL 10 MG CAPSULE (FP) PO SCH (10:44)
--- NOTE | 2018-05-11 11:27 | PN ---
Teaching Attending Note Name of Resident: Monet Obando ATTENDING PHYSICIAN STATEMENT I saw and evaluated the patient. I reviewed the resident's note and discussed the case with the resident. I agree with the resident's findings and plan as documented with exceptions below. SUBJECTIVE: Paitent seen and examined. denies pain currently, no new complaints. OBJECTIVE: Vital Signs Period Temp Pulse Resp BP Sys/Hernandez Pulse Ox Last 24 Hr 97.9 F-98.7 F 64-83 18-18 105-119/60-74 98 Intake & Output 05/08/18 05/09/18 05/10/18 05/11/18 23:59 23:59 23:59 23:59 Intake Total 800 1150 850 Output Total 600 375 200 Balance 200 775 650 Weight 123 lb 123 lb General: sitting in bed in no acute distress Chest: poor co-operation, no rales or wheezing Abdomen: soft, NT, ND, positive bowel sounds Extremities: left thigh dressing clean, positive pulses, no ecchymosis or edema Home Medications Medication Instructions Recorded Fluoxetine HCl [Prozac] 10 mg PO DAILY 05/08/18 Metoprolol Succinate [Toprol Xl] 25 mg PO DAILY 05/08/18 Active Medications Acetaminophen (Tylenol -) 650 mg PO Q6H PRN PRN Reason: PAIN LEVEL 1 - 3 Last Admin: 05/10/18 23:42 Dose: 650 mg Calcium Carbonate/Cholecalciferol (Os-Baljinder 500+D -) 1 tab PO BID [facility] Last Admin: 05/11/18 10:37 Dose: 1 tab Docusate Sodium (Colace -) 100 mg PO TID [facility] Last Admin: 05/11/18 05:09 Dose: Not Given Enoxaparin Sodium (Lovenox -) 40 mg SQ DAILY [facility] Last Admin: 05/11/18 10:37 Dose: 40 mg Ferrous Sulfate (Feosol -) 325 mg PO BIDWM [facility] Last Admin: 05/11/18 10:37 Dose: 325 mg Fluoxetine HCl (Prozac -) 10 mg PO DAILY [facility] Last Admin: 05/11/18 10:44 Dose: 10 mg Metoprolol Succinate (Toprol Xl -) 25 mg PO DAILY [facility] Last Admin: 05/11/18 10:37 Dose: 25 mg Ondansetron HCl (Zofran Injection) 4 mg IVPUSH Q6H PRN PRN Reason: NAUSEA AND/OR VOMITING Polyethylene Glycol (Miralax (For Daily Use) -) 17 gm PO DAILY PRN PRN Reason: CONSTIPATION Laboratory Results - last 24 hr 05/11/18 05:50 WBC 9.0 RBC 4.03 Hgb 11.9 Hct 36.2 MCV 89.9 MCH 29.6 MCHC 33.0 RDW 13.1 Plt Count 189 MPV 8.1 ASSESSMENT AND PLAN: 83 yom with PMhx of perforated peptic ulcer s/p Partial Gastrectomy 20 years ago , Afib s/p ablation 03/2014, (on eliquis for 3 months then), recent CVA with left sided weakness in 01/2018, sent [facility], recent came home, s/ p fall now with left femoral neck fracture -Left femoral neck fracture s/p left hip hemiarthroplasty 05/09 -Mechanical fall -Atrial fibrillation s/p ablation 03/2014 -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 repeat h/h later today Pain control with Tylenol prn. Weight bearing per ortho. Continue metoprolol/prozac/melatonin. PT eval, incentive spirometry, bowel regimen. Dispo to rehab today if h/h stable and disposition arranged Plan discussed with [facility].
[2018-05-11 12:15] LABS: HEMATOCRIT 36.6 % (35.4-49); HEMOGLOBIN 12.8 GM/dL (11.7-16.9); MCH 31.6 pg (25.7-33.7); MEAN CELL VOLUME 90.1 fl (80-96); MEAN PLT VOLUME 8.5 fl (7.5-11.1); PLATELET COUNT 209 K/MM3 (134-434); RBC 4.07 M/mm3 (4.00-5.60); RDW 13.2 % (11.9-15.9); WHITE BLOOD COUNT 10.7 K/mm3 (4.0-10.0)
--- NOTE | 2018-05-11 14:01 | PATH ---
Surgical Pathology Report Patient Name: BENY NOEL [facility]. Rec. #: [id number] /Age/Gender: 1935 (Age: 83) / M Account: [id number] Location: [address] [place] [address] Taken: 05/09/2018 Received: 05/10/2018 Reported: 05/11/2018 Physicians: Neal Hsu M.D. Specimen(s) Received LEFT FEMORAL HEAD Clinical History Femoral neck fracture Final Diagnosis BONE, FEMORAL HEAD, LEFT, HEMIARTHROPLASTY: BONE WITH INTERSTITIAL HEMORRHAGE CONSISTENT WITH FRACTURE. Electronically Signed Ciara Paulino M.D. Gross Description Received in formalin labeled "left femoral head," is a 4.8 x 4.8 x 4.4 cm femoral head with no femoral neck attached. The margin of resection is red-brown, jagged and hemorrhagic. No areas of eburnation are identified. The articular surface is ott-brown and focally granular. The underlying trabecular bone is yellow, hard and focally hemorrhagic. Also received within the same container is a 5.0 x 3.1 x 3.0 cm portion of hemorrhagic femoral neck. Contract Design Agent sections are submitted in one cassette, following decalcification. 05/10/201805/10/2018
[2018-05-11 15:27] VITALS: PULSE 74
[2018-05-11] MEDS: ACETAMINOPHEN 325 MG TABLET (FP) PO PRN (16:13)
--- NOTE | 2018-05-11 18:08 | PN ---
Progress Note, Physician History of Present Illness: he feels well. pain tolerable. resting in bed. - Current Medication List Current Medications: Active Medications Acetaminophen (Tylenol -) 650 mg PO Q6H PRN PRN Reason: PAIN LEVEL 1 - 3 Last Admin: 05/11/18 16:13 Dose: 650 mg Calcium Carbonate/Cholecalciferol (Os-Baljinder 500+D -) 1 tab PO BID [facility] Last Admin: 05/11/18 10:37 Dose: 1 tab Docusate Sodium (Colace -) 100 mg PO TID [facility] Last Admin: 05/11/18 16:14 Dose: 100 mg Enoxaparin Sodium (Lovenox -) 40 mg SQ DAILY [facility] Last Admin: 05/11/18 10:37 Dose: 40 mg Ferrous Sulfate (Feosol -) 325 mg PO BIDWM [facility] Last Admin: 05/11/18 10:37 Dose: 325 mg Fluoxetine HCl (Prozac -) 10 mg PO DAILY [facility] Last Admin: 05/11/18 10:44 Dose: 10 mg Metoprolol Succinate (Toprol Xl -) 25 mg PO DAILY [facility] Last Admin: 05/11/18 10:37 Dose: 25 mg Ondansetron HCl (Zofran Injection) 4 mg IVPUSH Q6H PRN PRN Reason: NAUSEA AND/OR VOMITING Polyethylene Glycol (Miralax (For Daily Use) -) 17 gm PO DAILY PRN PRN Reason: CONSTIPATION - Objective Vital Signs: Vital Signs Temperature 98.4 F 05/11/18 14:26 Pulse Rate 74 05/11/18 14:26 Respiratory Rate 20 05/11/18 14:26 Blood Pressure 107/89 05/11/18 14:26 O2 Sat by Pulse Oximetry (%) 98 05/11/18 09:00 Constitutional: Yes: Well Nourished, No Distress, Calm Musculoskeletal: Yes: Other (Dressing CDI, compartments soft. Smooth ROM of hip. Calf soft, NT. NVID.) Labs: CBC, BMP 05/11/18 12:33 05/09/18 15:32 INR, PTT INR 1.34 (0.83-1.09) H 05/08/18 06:10 Assessment/Plan pod #2 s/p left hip hemiarthroplasty -PT WBAT -Pain control -discharge planning -DVT prophaxis
[2018-05-11 18:46] VITALS: BP 111/69; TEMP 97.7
--- NOTE | 2018-05-11 20:12 | DS ---
Physical Exam: SUBJECTIVE: Patient seen and examined at bed side this morning. doing well. No acute overnight events. OBJECTIVE: Vital Signs Period Temp Pulse Resp BP Sys/Hernandez Pulse Ox Last 24 Hr 97.7 F-98.4 F 64-83 18-20 105-119/60-89 98-98 PHYSICAL EXAM GENERAL: Elderly male, sitting in bed comfortably, is awake, alert, and fully oriented, in no acute distress. EYES:EOM intact, no pallor or icterus. NECK: Supple, no JVD. LUNGS: B/L Breath sounds equal, no wheeze or crackles. HEART: Regular rate and rhythm, S1, S2 without murmur. ABDOMEN: Soft, nontender, no organomegaly. UPPER EXTREMITIES: 2+ pulses, warm, well-perfused, no edema. LOWER EXTREMITIES: Left hip: clean dressing, no hematoma, no erythema, DP, PT pulses intact. Right ext: normal. NEUROLOGICAL: No facial droop, Normal speech, gait not observed. PSYCH: Normal mood, normal affect. SKIN: Warm, dry, normal turgor, no rashes or lesions noted LABS Laboratory Results - last 24 hr 05/11/18 05/11/18 05/11/18 05:50 12:00 12:33 WBC 9.0 10.7 H Cancelled Corrected WBC (auto) Cancelled RBC 4.03 4.07 Cancelled Hgb 11.9 12.8 Cancelled Hct 36.2 36.6 Cancelled MCV 89.9 90.1 Cancelled MCH 29.6 31.6 Cancelled MCHC 33.0 35.0 Cancelled RDW 13.1 13.2 Cancelled Plt Count 189 209 Cancelled MPV 8.1 8.5 Cancelled Manual Slide Review Cancelled Platelet Comment Cancelled HOSPITAL COURSE: Date of Admission:05/08/18 Date of Discharge: 05/11/18 Patient is an 83 year old male PMhx of perforated peptic ulcer s/p Partial Gastrectomy 20 years ago, Afib s/p ablation 03/2014, (on eliquis for 3 months then), recent CVA with left sided weakness in 01/2018, sent [facility], recently returned home, s/p fall now with left femoral neck fracture. Patient underwent left hip hemiarthroplasty on 05/09/18. No surgical complications , patient tolerated well after surgery, pain well controlled with PO Tylenol. DVT prophylaxis with Lovenox 40 mg sq daily continued.Incentive spirometry done Q1H PRN. Non weight bearing exercises with physical therapy. Patient is hemodynamically stable and can be discharged to a short term rehabilitation. Minutes to complete discharge: 45 Discharge Summary Reason For Visit: FX OF LEFT HIP Condition: Good - Instructions Diet, Activity, Other Instructions: You were admitted for the treatment of left hip fracture underwent left hip hemiarthroplasty on 05/09/18. Sending you to a short term rehabilitation. MEDICATIONS: Lovenox 40 mg daily for 4 weeks Resume your home medications as before You can take over the counter laxatives for constipation WOUND CARE: keep left hip are dry and clean, left hip precautions ACTIVITY: As tolerated DIET: Regular diet FOLLOW UP: Primary care physician in a week Orthopedics (Dr. Thomas) in a week. CBC (complete blood count) in 1-2 weeks with your doctor. If you get any new symptoms, left thigh swelling/hematoma, worsening pain, numbness, tingling in the left leg or skin discoloration, fever, chills or any other symptoms, please call 911 and come to the ED immediately. Referrals: Pedro Luis Thomas MD [Staff Physician] - 1 Week Ciara Hinson MD [Primary Care Provider] - Disposition: [facility] - Home Medications Comprehensive Discharge Medication List: Ambulatory Orders Fluoxetine HCl [Prozac] 10 mg PO DAILY 05/08/18 Metoprolol Succinate [Toprol Xl] 25 mg PO DAILY 05/08/18 Acetaminophen [Tylenol .Regular Strength -] 325 mg PO Q6H PRN tablet 05/11/18 Calcium 500Mg/Vit-D 200 Units [Os-Baljinder 500+D -] 1 tab PO BID tab 05/11/18 Docusate Sodium [Colace -] 100 mg PO TID capsule 05/11/18 Enoxaparin [Lovenox -] 40 mg SQ DAILY 28 Days disp.syrin 05/11/18 Polyethylene Glycol 3350 [Miralax 119 gm Btl -] 17 gm PO DAILY PRN bottle 05/11 This patient is new to me today: No Emergency Visit: Yes ED Registration Date: 05/08/18 Care time: The patient presented to the Emergency Department on the above date and was hospitalized for further evaluation of their emergent condition. Critical Care patient: No - Discharge Referral Referred to [facility] Med P.C.: No
== END 2018-05-11 19:57 | DRG 470 ==
LOC: JER 05:57 → JERBED 09:30 → J5S 14:41
PROVIDERS: ADMIT Hospitalist; ATTEND Hospitalist
PROC: 0SRB049 Replacement of Left Hip Joint with Ceramic on Polyethylene Synthetic Substitute, Cemented, Open Approach (ICD-10-PCS; principal; 2018-05-09 09:00)
DX: S72.002A Fracture of unspecified part of neck of left femur, initial encounter for closed fracture (principal); I69.354 Hemiplegia and hemiparesis following cerebral infarction affecting left non-dominant side; E46 Unspecified protein-calorie malnutrition; I48.91 Unspecified atrial fibrillation; W19.XXXA Unspecified fall, initial encounter; Y93.9 Activity, unspecified; Y92.89 Other specified places as the place of occurrence of the external cause; Y99.9 Unspecified external cause status
CPT/HCPCS: 36415; 71045-TC-FY; 72170-TC-FY; 73700-TC-RT; 80048; 80053; 81003; 83735; 84100; 85025; 85027; 85610; 85730; 86850; 86900; 86901; 88305-TC; 88311-TC; 93005; 93010; 93971-TC; 94010; 94760; 97116-GP; 97162-GP; 99285-25; J0131; J1644

== ENCOUNTER 2021-12-24 04:11 | Observation (INO) | payer OTHER, MEDICARE ==
[2021-12-24 04:41] VITALS: BMI 23.1
[2021-12-24 05:30] LABS: INR 1.49 (0.83-1.09); PROTHROMBIN TIME (PATIENT) 17.2 SEC (9.7-13.0)
[2021-12-24 05:32] LABS: EOS % 1.6 % (0-4.5); HEMATOCRIT 40.2 % (35.4-49); HEMOGLOBIN 13.3 GM/dL (11.7-16.9); MCH 30.3 pg (25.7-33.7); MEAN CELL VOLUME 91.6 fl (80-96); MONO % 9.7 % (3.8-10.2); NEUT % 53.7 % (42.8-82.8); PLATELET COUNT 169 10^3/uL (134-434); RBC 4.39 M/mm3 (4.00-5.60); RDW 14.3 % (11.9-15.9); WHITE BLOOD COUNT 5.5 K/mm3 (4.0-10.0)
[2021-12-24 05:33] LABS: ACTIVATED PTT 33.2 SECONDS (25.2-36.5)
[2021-12-24 05:45] LABS: ALBUMIN 3.4 g/dl (3.4-5.0); BLOOD UREA NITROGEN 12.8 mg/dL (7-18); CALCIUM 8.3 mg/dL (8.5-10.1)
[2021-12-24 05:48] LABS: CREATININE 1.2 mg/dL (0.55-1.3)
[2021-12-24 05:50] LABS: BILIRUBIN,TOTAL 0.7 mg/dL (0.2-1); TOT PROT 6.4 g/dl (6.4-8.2)
[2021-12-24 06:23] VITALS: TEMP 97.4
[2021-12-24] MEDS ORDERED: ATORVASTATIN CA 40 MG TABLET (FP) PO ONE ×2 (08:38→10:00)
[2021-12-24] MEDS ORDERED: ASPIRIN 81 MG CHEWABLE TABLETS PO ONE (08:38)
[2021-12-24] MEDS ORDERED: PANTOPRAZOLE 40 MG TABLET PO SCH (09:15)
[2021-12-24] MEDS ORDERED: PANTOPRAZOLE 40 MG TABLET PO ONE (09:18)
[2021-12-24] MEDS ORDERED: ASPIRIN 81 MG CHEWABLE TABLETS ONE (09:18)
[2021-12-24] MEDS ORDERED: ATORVASTATIN CA 40 MG TABLET (FP) ONE (09:34)
[2021-12-24] MEDS ORDERED: ASPIRIN 81 MG CHEWABLE TABLETS PO SCH (10:00)
[2021-12-24 18:15] VITALS: BP 113/84; PULSE 65; RESP 18
[2021-12-25] MEDS ORDERED: PANTOPRAZOLE 40 MG TABLET PO SCH (10:00)
== END 2021-12-24 18:22 | disposition home or self-care (01) ==
LOC: JER 04:11 → JERBED 06:06
PROVIDERS: ADMIT Internal Medicine; ATTEND Internal Medicine
DX: R07.9 Chest pain, unspecified (principal); N40.0 Benign prostatic hyperplasia without lower urinary tract symptoms; I49.9 Cardiac arrhythmia, unspecified; K59.00 Constipation, unspecified; Z96.641 Presence of right artificial hip joint; Z87.891 Personal history of nicotine dependence; R07.89 Other chest pain; I48.91 Unspecified atrial fibrillation; K25.4 Chronic or unspecified gastric ulcer with hemorrhage
CPT/HCPCS: 36415; 71045-TC-FY; 80053; 80061; 82550; 82553; 83036; 84443; 84484; 85025; 85610; 85730; 93005; 93010; 93306-TC; 99285-25; C9803-CS; G0378; U0003; U0005

== ENCOUNTER 2022-04-04 02:14 | Inpatient (IN) | payer OTHER, MEDICARE ==
[2022-04-04 04:59] LABS: HEMATOCRIT 43.1 % (35.4-49); HEMOGLOBIN 14.7 GM/dL (11.7-16.9); MCH 30.9 pg (25.7-33.7); MCHC 34.1 g/dl (32.0-35.9); MEAN CELL VOLUME 90.6 fl (80-96); MEAN PLT VOLUME 8.4 fl (7.5-11.1); PLATELET COUNT 225 10^3/uL (134-434); RBC 4.76 M/mm3 (4.00-5.60); RDW 13.5 % (11.9-15.9); WHITE BLOOD COUNT 6.5 K/mm3 (4.0-10.0)
[2022-04-04 05:54] LABS: CHLORIDE 105 mmol/L (98-107); SODIUM 139 mmol/L (136-145)
[2022-04-04 05:57] LABS: ALBUMIN 3.3 g/dl (3.4-5.0); ANION GAP 4 MMOL/L (8-16); BLOOD UREA NITROGEN 18.9 mg/dL (7-18); CALCIUM 8.3 mg/dL (8.5-10.1); CO2 30 mmol/L (21-32); GLUCOSE,RANDOM 92 mg/dL (74-106)
[2022-04-04 06:00] LABS: CREATININE 1.1 mg/dL (0.55-1.3); SGOT/AST 35 U/L (15-37); SGPT/ALT 24 U/L (13-61)
[2022-04-04 06:01] LABS: BILIRUBIN,TOTAL 0.8 mg/dL (0.2-1)
[2022-04-04 06:02] LABS: TOT PROT 6.5 g/dl (6.4-8.2)
[2022-04-04 06:03] LABS: ALK PHOS 93 U/L (45-117)
[2022-04-04] MEDS ORDERED: LACTATED RINGERS SOLUTION 1,000 ML/1,000 ML INFUS.BAG IV SCH (08:15)
[2022-04-04] MEDS ORDERED: metoPROLOL SUCCINATE 25 MG TAB.SR.24H (FP) PO ONE (10:01)
[2022-04-04] MEDS ORDERED: ENOXAPARIN NA (PORCINE) 40 MG/0.4 ML DISP.SYRIN SQ ONE (10:01)
[2022-04-04] MEDS: ENOXAPARIN NA (PORCINE) 40 MG/0.4 ML DISP.SYRIN SQ SCH (10:07)
[2022-04-04] MEDS: metoPROLOL SUCCINATE 25 MG TAB.SR.24H (FP) PO SCH (10:07)
[2022-04-04] MEDS ORDERED: HALOPERIDOL LACTATE 5 MG/ML IM ONE ×3 (11:07→12:00)
[2022-04-04] MEDS ORDERED: POLYETHYLENE GLYCOL (HEALTHYLAX) 3350 17 GM PACKET PO PRN ×2 (14:22→14:26)
[2022-04-04] MEDS ORDERED: MELATONIN 5 MG TABLETS PO ONE (22:46)
[2022-04-04] MEDS: DOCUSATE SODIUM 100 MG CAPSULE (FP) PO SCH (22:50)
[2022-04-04] MEDS: CALCIUM 500MG/VIT-D 200 UNITS COMBO TABLET (FP) PO SCH (22:50)
[2022-04-05] MEDS: HALOPERIDOL LACTATE 5 MG/ML IM PRN ×2 (01:41→09:28)
[2022-04-05] MEDS: DOCUSATE SODIUM 100 MG CAPSULE (FP) PO SCH ×3 (06:37→21:32)
[2022-04-05] MEDS: CALCIUM 500MG/VIT-D 200 UNITS COMBO TABLET (FP) PO SCH ×2 (09:27→21:32)
[2022-04-05] MEDS: metoPROLOL SUCCINATE 25 MG TAB.SR.24H (FP) PO SCH (09:27)
[2022-04-05] MEDS: ENOXAPARIN NA (PORCINE) 40 MG/0.4 ML DISP.SYRIN SQ SCH (09:27)
[2022-04-05] MEDS: FLUoxetine HCL 10 MG CAPSULE PO SCH (09:27)
[2022-04-05 11:27] LABS: HEMATOCRIT 44.1 % (35.4-49); HEMOGLOBIN 14.7 GM/dL (11.7-16.9); MCH 29.9 pg (25.7-33.7); MCHC 33.2 g/dl (32.0-35.9); MEAN CELL VOLUME 89.9 fl (80-96); MEAN PLT VOLUME 8.8 fl (7.5-11.1); PLATELET COUNT 274 10^3/uL (134-434); RBC 4.91 M/mm3 (4.00-5.60); RDW 13.5 % (11.9-15.9); WHITE BLOOD COUNT 9.5 K/mm3 (4.0-10.0)
[2022-04-05 11:33] LABS: BLOOD UREA NITROGEN 19.3 mg/dL (7-18)
[2022-04-05 11:36] LABS: CALCIUM 9.1 mg/dL (8.5-10.1); CREATININE 1.1 mg/dL (0.55-1.3); PHOSPHOROUS 3.3 mg/dL (2.5-4.9)
[2022-04-05 11:37] LABS: MAGNESIUM 2.4 mg/dL (1.8-2.4)
[2022-04-05 12:54] LABS: ANISOCYTOSIS 0; MACROCYTOSIS 0
[2022-04-05] MEDS: QUEtiapine FUMARATE 25 MG TABLET PO SCH ×2 (13:06→21:32)
[2022-04-06] MEDS: DOCUSATE SODIUM 100 MG CAPSULE (FP) PO SCH ×3 (06:47→21:46)
[2022-04-06] MEDS: metoPROLOL SUCCINATE 25 MG TAB.SR.24H (FP) PO SCH (10:22)
[2022-04-06] MEDS: QUEtiapine FUMARATE 25 MG TABLET PO SCH ×2 (10:22→21:46)
[2022-04-06] MEDS: ENOXAPARIN NA (PORCINE) 40 MG/0.4 ML DISP.SYRIN SQ SCH (10:22)
[2022-04-06] MEDS: FLUoxetine HCL 10 MG CAPSULE PO SCH (15:58)
[2022-04-06] MEDS: CALCIUM 500MG/VIT-D 200 UNITS COMBO TABLET (FP) PO SCH ×2 (15:58→21:46)
[2022-04-07] MEDS: DOCUSATE SODIUM 100 MG CAPSULE (FP) PO SCH ×3 (05:00→21:58)
[2022-04-07 10:06] LABS: BASO % 0.5 % (0-2.0); EOS % 0.3 % (0-4.5); HEMATOCRIT 46.4 % (35.4-49); HEMOGLOBIN 15.5 GM/dL (11.7-16.9); MCH 30.2 pg (25.7-33.7); MCHC 33.4 g/dl (32.0-35.9); MEAN CELL VOLUME 90.6 fl (80-96); NEUT % 81.2 % (42.8-82.8); PLATELET COUNT 262 10^3/uL (134-434); RBC 5.12 M/mm3 (4.00-5.60); RDW 13.5 % (11.9-15.9); WHITE BLOOD COUNT 8.8 K/mm3 (4.0-10.0)
[2022-04-07] MEDS: ENOXAPARIN NA (PORCINE) 40 MG/0.4 ML DISP.SYRIN SQ SCH (10:38)
[2022-04-07] MEDS: FLUoxetine HCL 10 MG CAPSULE PO SCH (10:39)
[2022-04-07] MEDS: QUEtiapine FUMARATE 25 MG TABLET PO SCH ×2 (10:39→21:58)
[2022-04-07] MEDS: metoPROLOL SUCCINATE 25 MG TAB.SR.24H (FP) PO SCH (10:39)
[2022-04-07] MEDS: CALCIUM 500MG/VIT-D 200 UNITS COMBO TABLET (FP) PO SCH ×2 (10:40→21:58)
[2022-04-07 10:44] LABS: TOT PROT 6.9 g/dl (6.4-8.2)
[2022-04-07 10:45] LABS: CREATININE 1.1 mg/dL (0.55-1.3)
[2022-04-07 10:46] LABS: ALBUMIN 3.6 g/dl (3.4-5.0); BILIRUBIN,TOTAL 1.1 mg/dL (0.2-1); CALCIUM 9.2 mg/dL (8.5-10.1)
[2022-04-07 10:47] LABS: BLOOD UREA NITROGEN 30.7 mg/dL (7-18)
[2022-04-07] MEDS: D5-1/2NS+10 MEQ KCL - 10 MEQ/1,000 ML INFUS.BAG IV SCH (23:58)
[2022-04-08] MEDS: DOCUSATE SODIUM 100 MG CAPSULE (FP) PO SCH ×3 (05:28→22:40)
[2022-04-08] MEDS: QUEtiapine FUMARATE 25 MG TABLET PO SCH ×2 (09:51→22:40)
[2022-04-08] MEDS: CALCIUM 500MG/VIT-D 200 UNITS COMBO TABLET (FP) PO SCH ×2 (09:52→22:40)
[2022-04-08] MEDS: FLUoxetine HCL 10 MG CAPSULE PO SCH (09:52)
[2022-04-08] MEDS: ENOXAPARIN NA (PORCINE) 40 MG/0.4 ML DISP.SYRIN SQ SCH (09:52)
[2022-04-08] MEDS: metoPROLOL SUCCINATE 25 MG TAB.SR.24H (FP) PO SCH (10:30)
[2022-04-08] MEDS: D5-1/2NS+10 MEQ KCL - 10 MEQ/1,000 ML INFUS.BAG IV SCH (19:01)
[2022-04-09] MEDS: DOCUSATE SODIUM 100 MG CAPSULE (FP) PO SCH ×3 (05:27→22:49)
[2022-04-09 10:49] LABS: BASO % 0.5 % (0-2.0); EOS % 0.4 % (0-4.5); HEMATOCRIT 44.2 % (35.4-49); HEMOGLOBIN 14.7 GM/dL (11.7-16.9); LYMPH % 14.2 % (8-40); MCH 30.3 pg (25.7-33.7); MCHC 33.3 g/dl (32.0-35.9); MEAN CELL VOLUME 90.9 fl (80-96); MONO % 9.1 % (3.8-10.2); NEUT % 75.8 % (42.8-82.8); PLATELET COUNT 221 10^3/uL (134-434); RBC 4.86 M/mm3 (4.00-5.60); RDW 13.3 % (11.9-15.9); WHITE BLOOD COUNT 8.1 K/mm3 (4.0-10.0)
[2022-04-09] MEDS: FLUoxetine HCL 10 MG CAPSULE PO SCH (10:50)
[2022-04-09] MEDS: metoPROLOL SUCCINATE 25 MG TAB.SR.24H (FP) PO SCH ×2 (10:50→10:53)
[2022-04-09] MEDS: ENOXAPARIN NA (PORCINE) 40 MG/0.4 ML DISP.SYRIN SQ SCH (10:50)
[2022-04-09] MEDS: QUEtiapine FUMARATE 25 MG TABLET PO SCH ×2 (10:50→22:49)
[2022-04-09] MEDS: CALCIUM 500MG/VIT-D 200 UNITS COMBO TABLET (FP) PO SCH ×2 (10:52→22:49)
[2022-04-09 11:10] LABS: CALCIUM 8.9 mg/dL (8.5-10.1)
[2022-04-09 11:11] LABS: BLOOD UREA NITROGEN 21.9 mg/dL (7-18)
[2022-04-09] MEDS: D5-1/2NS+10 MEQ KCL - 10 MEQ/1,000 ML INFUS.BAG IV SCH ×2 (18:53→20:17)
[2022-04-10] MEDS: DOCUSATE SODIUM 100 MG CAPSULE (FP) PO SCH ×3 (05:14→22:48)
[2022-04-10] MEDS: metoPROLOL SUCCINATE 25 MG TAB.SR.24H (FP) PO SCH (09:37)
[2022-04-10] MEDS: QUEtiapine FUMARATE 25 MG TABLET PO SCH ×2 (09:37→22:48)
[2022-04-10] MEDS: ENOXAPARIN NA (PORCINE) 40 MG/0.4 ML DISP.SYRIN SQ SCH (09:37)
[2022-04-10] MEDS: FLUoxetine HCL 10 MG CAPSULE PO SCH (09:38)
[2022-04-10] MEDS: CALCIUM 500MG/VIT-D 200 UNITS COMBO TABLET (FP) PO SCH ×2 (09:38→22:48)
[2022-04-10 11:46] LABS: PH,URINE 6.5 (5.0-8.0); URINE APPEARANCE CLEAR; URINE BILIRUBIN NEGATIVE (NEGATIVE); URINE COLOR YELLOW; URINE GLUCOSE (UA) NEGATIVE (NEGATIVE); URINE KETONE NEGATIVE (NEGATIVE); URINE LEUK ESTERASE NEGATIVE (NEGATIVE); URINE NITRITE NEGATIVE (NEGATIVE); URINE PROTEIN NEGATIVE (NEGATIVE); URINE UROBILINOGEN 0.2 mg/dL (0.2-1.0)
[2022-04-10] MEDS: D5-1/2NS+10 MEQ KCL - 10 MEQ/1,000 ML INFUS.BAG IV SCH (12:49)
[2022-04-11] MEDS: MELATONIN 5 MG TABLETS PO PRN ×2 (00:54→21:44)
[2022-04-11] MEDS: D5-1/2NS+10 MEQ KCL - 10 MEQ/1,000 ML INFUS.BAG IV SCH ×2 (02:17→18:18)
[2022-04-11] MEDS: DOCUSATE SODIUM 100 MG CAPSULE (FP) PO SCH ×3 (07:10→21:44)
[2022-04-11 09:35] LABS: URINE APPEARANCE CLEAR; URINE BILIRUBIN NEGATIVE (NEGATIVE); URINE COLOR YELLOW; URINE GLUCOSE (UA) NEGATIVE (NEGATIVE); URINE KETONE NEGATIVE (NEGATIVE); URINE LEUK ESTERASE NEGATIVE (NEGATIVE); URINE NITRITE NEGATIVE (NEGATIVE); URINE PROTEIN NEGATIVE (NEGATIVE); URINE UROBILINOGEN 0.2 mg/dL (0.2-1.0)
[2022-04-11] MEDS: metoPROLOL SUCCINATE 25 MG TAB.SR.24H (FP) PO SCH (11:58)
[2022-04-11] MEDS: CALCIUM 500MG/VIT-D 200 UNITS COMBO TABLET (FP) PO SCH ×2 (11:59→21:44)
[2022-04-11] MEDS: QUEtiapine FUMARATE 25 MG TABLET PO SCH ×2 (11:59→21:44)
[2022-04-12] MEDS: DOCUSATE SODIUM 100 MG CAPSULE (FP) PO SCH ×3 (06:00→22:27)
[2022-04-12] MEDS: CALCIUM 500MG/VIT-D 200 UNITS COMBO TABLET (FP) PO SCH ×2 (09:48→22:31)
[2022-04-12] MEDS: QUEtiapine FUMARATE 25 MG TABLET PO SCH ×2 (09:48→22:27)
[2022-04-12] MEDS: metoPROLOL SUCCINATE 25 MG TAB.SR.24H (FP) PO SCH (09:49)
[2022-04-12 10:16] LABS: HEMATOCRIT 45.7 % (35.4-49); HEMOGLOBIN 15.1 GM/dL (11.7-16.9); MCH 30.2 pg (25.7-33.7); MCHC 33.1 g/dl (32.0-35.9); MEAN CELL VOLUME 91.3 fl (80-96); MEAN PLT VOLUME 9.4 fl (7.5-11.1); PLATELET COUNT 180 10^3/uL (134-434); RDW 13.2 % (11.9-15.9); WHITE BLOOD COUNT 6.7 K/mm3 (4.0-10.0)
[2022-04-12 10:40] LABS: BLOOD UREA NITROGEN 18.2 mg/dL (7-18); CALCIUM 8.8 mg/dL (8.5-10.1); MAGNESIUM 2.1 mg/dL (1.8-2.4)
[2022-04-12 10:43] LABS: PHOSPHOROUS 3.4 mg/dL (2.5-4.9)
[2022-04-12] MEDS ORDERED: QUEtiapine FUMARATE 25 MG TABLET PO SCH (14:01)
[2022-04-13] MEDS: DOCUSATE SODIUM 100 MG CAPSULE (FP) PO SCH ×3 (05:17→22:24)
[2022-04-13] MEDS: CALCIUM 500MG/VIT-D 200 UNITS COMBO TABLET (FP) PO SCH ×2 (09:36→22:24)
[2022-04-13] MEDS: metoPROLOL SUCCINATE 25 MG TAB.SR.24H (FP) PO SCH (11:01)
[2022-04-13] MEDS: QUEtiapine FUMARATE 25 MG TABLET PO SCH (22:24)
[2022-04-14] MEDS: DOCUSATE SODIUM 100 MG CAPSULE (FP) PO SCH ×3 (05:59→21:35)
[2022-04-14] MEDS: CALCIUM 500MG/VIT-D 200 UNITS COMBO TABLET (FP) PO SCH ×2 (09:34→22:14)
[2022-04-14] MEDS: metoPROLOL SUCCINATE 25 MG TAB.SR.24H (FP) PO SCH (09:34)
[2022-04-14 15:32] VITALS: RESP 20
[2022-04-15] MEDS: DOCUSATE SODIUM 100 MG CAPSULE (FP) PO SCH (06:44)
[2022-04-15] MEDS ORDERED: DOCUSATE SODIUM 100 MG CAPSULE (FP) PO ONE (09:05)
[2022-04-15] MEDS ORDERED: POLYETHYLENE GLYCOL (HEALTHYLAX) 3350 17 GM PACKET PO ONE (09:15)
[2022-04-15 09:21] LABS: HEMATOCRIT 42.5 % (35.4-49); HEMOGLOBIN 14.3 GM/dL (11.7-16.9); MCHC 33.6 g/dl (32.0-35.9); MEAN CELL VOLUME 92.1 fl (80-96); MEAN PLT VOLUME 8.6 fl (7.5-11.1); PLATELET COUNT 174 10^3/uL (134-434); RBC 4.61 M/mm3 (4.00-5.60); RDW 13.5 % (11.9-15.9); WHITE BLOOD COUNT 8.2 K/mm3 (4.0-10.0)
[2022-04-15] MEDS ORDERED: SENNOSIDES 8.6MG TABLET (FP) PO ONE (09:30)
[2022-04-15 09:39] LABS: BLOOD UREA NITROGEN 22.4 mg/dL (7-18); CALCIUM 8.3 mg/dL (8.5-10.1)
[2022-04-15 09:42] LABS: CREATININE 0.9 mg/dL (0.55-1.3)
[2022-04-15] MEDS: metoPROLOL SUCCINATE 25 MG TAB.SR.24H (FP) PO SCH (10:23)
[2022-04-15] MEDS: CALCIUM 500MG/VIT-D 200 UNITS COMBO TABLET (FP) PO SCH (10:24)
[2022-04-15 10:39] VITALS: BP 102/62; PULSE 69; TEMP 98
== END 2022-04-15 12:31 | DRG 177 ==
LOC: JER 02:14 → JERBED 06:45 → J6S 12:28 → J5S 04-06 06:07 → OBSVTOIN 04-08 14:06 → J5S 04-14 18:57
PROVIDERS: ADMIT Internal Medicine; ATTEND Internal Medicine
DX: U07.1 COVID-19 (principal); G93.41 Metabolic encephalopathy; F03.90 Unspecified dementia, unspecified severity, without behavioral disturbance, psychotic disturbance, mood disturbance, and anxiety; I48.91 Unspecified atrial fibrillation; I10 Essential (primary) hypertension; R41.0 Disorientation, unspecified; F41.9 Anxiety disorder, unspecified
CPT/HCPCS: 0241U-QW; 36415; 71045-TC-FY; 80048; 80053; 81003; 82728; 83735; 84100; 84443; 84484; 85025; 85027; 86140; 87086; 93005; 93010; 94010; 97116-GP; 97162-GP; 99285-25; C9803-CS; G0378; U0003; U0005

== ENCOUNTER 2023-09-09 09:51 | Inpatient (IN) | payer OTHER, MEDICARE ==
[2023-09-09 10:14] VITALS: BMI 22.4
[2023-09-09 11:17] LABS: BASO % 0.5 % (0-2.0); EOS % 1.6 % (0-4.5); HEMATOCRIT 39.7 % (35.4-49); HEMOGLOBIN 13.6 GM/dL (11.7-16.9); LYMPH % 10.9 % (8-40); MCH 31.4 pg (25.7-33.7); MCHC 34.2 g/dl (32.0-35.9); MEAN CELL VOLUME 91.8 fl (80-96); MEAN PLT VOLUME 8.8 fl (7.5-11.1); PLATELET COUNT 149 10^3/uL (134-434); RBC 4.33 M/mm3 (4.00-5.60); RDW 13.9 % (11.9-15.9); WHITE BLOOD COUNT 9.3 K/mm3 (4.0-10.0)
[2023-09-09 11:36] LABS: POTASSIUM 5.4 mmol/L (3.5-5.1)
[2023-09-09 11:38] LABS: CALCIUM 8.3 mg/dL (8.5-10.1)
[2023-09-09 11:39] LABS: ALBUMIN 3.2 g/dl (3.4-5.0); BLOOD UREA NITROGEN 19.9 mg/dL (7-18)
[2023-09-09 11:42] LABS: CREATININE 1.1 mg/dL (0.55-1.3)
[2023-09-09 11:43] LABS: BILIRUBIN,TOTAL 0.9 mg/dL (0.2-1)
[2023-09-09 11:44] LABS: TOT PROT 6.6 g/dl (6.4-8.2)
[2023-09-09 11:47] LABS: N-TERMINAL BNP 1020.6 pg/ml (5-450)
[2023-09-09] MEDS ORDERED: IBUPROFEN 600 MG TABLET (FP) PO ONE (14:44)
[2023-09-09] MEDS ORDERED: ACETAMINOPHEN 325 MG TABLET (FP) ONE (14:44)
[2023-09-09] MEDS: IBUPROFEN 600 MG TABLET (FP) PO ONE (14:56)
[2023-09-09] MEDS: ACETAMINOPHEN 325 MG TABLET (FP) PO ONE (14:56)
[2023-09-09] MEDS ORDERED: LIDOCAINE HCL 2% JELLY 6 ML TP ONE (16:41)
[2023-09-09 17:48] LABS: EPI CELLS 4 /uL (0-25.1); HYALINE CASTS 0 /uL (0-3.1); URINE APPEARANCE CLEAR; URINE BACTERIA 7 /uL (0-1359); URINE BILIRUBIN NEGATIVE (NEGATIVE); URINE COLOR YELLOW; URINE GLUCOSE (UA) NEGATIVE (NEGATIVE); URINE KETONE NEGATIVE (NEGATIVE); URINE LEUK ESTERASE NEGATIVE (NEGATIVE); URINE NITRITE NEGATIVE (NEGATIVE); URINE PROTEIN NEGATIVE (NEGATIVE); URINE RBC 2458 /uL (0-23.9); URINE WBC 7 /uL (0-25.8)
[2023-09-09] MEDS ORDERED: ACETAMINOPHEN 1000 MG/100 ML BAG IVPB PRN (17:48)
[2023-09-09] MEDS: ACETAMINOPHEN 1000 MG/100 ML BAG IVPB SCH (20:07)
[2023-09-09] MEDS: LIDOCAINE PATCH REMOVAL MC SCH (21:16)
[2023-09-09] MEDS: MELATONIN 5 MG TABLETS PO SCH (21:17)
[2023-09-09] MEDS: hydrOXYzine PAMOATE 25 MG CAPSULE (FP) PO SCH (21:17)
[2023-09-10] MEDS: LORazepam 2 MG/ML SDV VIAL IVPUSH ONE (01:42)
[2023-09-10] MEDS: LIDOCAINE HCL 2% JELLY 6 ML TP ONE (08:00)
[2023-09-10 08:17] LABS: BASO % 0.5 % (0-2.0); EOS % 2.3 % (0-4.5); HEMATOCRIT 39.1 % (35.4-49); HEMOGLOBIN 13.6 GM/dL (11.7-16.9); LYMPH % 9.2 % (8-40); MCH 31.7 pg (25.7-33.7); MCHC 34.8 g/dl (32.0-35.9); MEAN CELL VOLUME 91.1 fl (80-96); MEAN PLT VOLUME 8.6 fl (7.5-11.1); MONO % 9.4 % (3.8-10.2); NEUT % 78.6 % (42.8-82.8); PLATELET COUNT 143 10^3/uL (134-434); RBC 4.29 M/mm3 (4.00-5.60); RDW 13.6 % (11.9-15.9); WHITE BLOOD COUNT 9.2 K/mm3 (4.0-10.0)
[2023-09-10 08:34] LABS: POTASSIUM 3.8 mmol/L (3.5-5.1)
[2023-09-10 08:38] LABS: BLOOD UREA NITROGEN 15.8 mg/dL (7-18)
[2023-09-10 08:39] LABS: ALBUMIN 3.2 g/dl (3.4-5.0); CALCIUM 8.4 mg/dL (8.5-10.1); MAGNESIUM 2.1 mg/dL (1.8-2.4)
[2023-09-10 08:42] LABS: PHOSPHOROUS 2.9 mg/dL (2.5-4.9)
[2023-09-10 08:43] LABS: BILIRUBIN,TOTAL 1.1 mg/dL (0.2-1); TOT PROT 6.4 g/dl (6.4-8.2)
[2023-09-10] MEDS: metoPROLOL SUCCINATE 25 MG TAB.SR.24H (FP) PO SCH (10:54)
[2023-09-10] MEDS: LIDOCAINE 5% TOPICAL PATCH TP SCH (10:54)
[2023-09-10] MEDS: ASPIRIN COATED 81 MG TABLET.EC PO SCH (10:54)
[2023-09-10] MEDS: TAMSULOSIN HCL 0.4 MG CAP PO SCH (10:54)
[2023-09-10] MEDS: ENOXAPARIN NA (PORCINE) 40 MG/0.4 ML DISP.SYRIN SQ SCH (10:54)
[2023-09-10] MEDS: metroNIDAZOLE 250 MG TABLET PO SCH (11:36)
[2023-09-11 08:25] LABS: EOS % 2.6 % (0-4.5); HEMATOCRIT 40.4 % (35.4-49); HEMOGLOBIN 13.5 GM/dL (11.7-16.9); LYMPH % 13.2 % (8-40); MCH 30.8 pg (25.7-33.7); MCHC 33.4 g/dl (32.0-35.9); MEAN CELL VOLUME 92.2 fl (80-96); MEAN PLT VOLUME 9.2 fl (7.5-11.1); NEUT % 73.2 % (42.8-82.8); PLATELET COUNT 140 10^3/uL (134-434); RBC 4.38 M/mm3 (4.00-5.60); RDW 13.7 % (11.9-15.9); WHITE BLOOD COUNT 9.1 K/mm3 (4.0-10.0)
[2023-09-11 08:51] LABS: POTASSIUM 3.8 mmol/L (3.5-5.1)
[2023-09-11 08:57] LABS: BLOOD UREA NITROGEN 21.3 mg/dL (7-18); CALCIUM 8.4 mg/dL (8.5-10.1)
[2023-09-11 08:58] LABS: ALBUMIN 3.2 g/dl (3.4-5.0)
[2023-09-11 09:02] LABS: TOT PROT 6.8 g/dl (6.4-8.2)
[2023-09-11 13:02] LABS: BASO % 0.8 % (0-2.0); EOS % 1.7 % (0-4.5); HEMATOCRIT 40.3 % (35.4-49); HEMOGLOBIN 13.8 GM/dL (11.7-16.9); LYMPH % 8.9 % (8-40); MCH 31.2 pg (25.7-33.7); MCHC 34.3 g/dl (32.0-35.9); MEAN CELL VOLUME 91.2 fl (80-96); MEAN PLT VOLUME 8.6 fl (7.5-11.1); MONO % 8.9 % (3.8-10.2); NEUT % 79.7 % (42.8-82.8); PLATELET COUNT 137 10^3/uL (134-434); RBC 4.42 M/mm3 (4.00-5.60); WHITE BLOOD COUNT 9.3 K/mm3 (4.0-10.0)
[2023-09-11] MEDS: SODIUM CHLORIDE 1,000 ML IV SCH (21:57)
[2023-09-12 08:29] LABS: BASO % 0.6 % (0-2.0); EOS % 0.7 % (0-4.5); HEMATOCRIT 37.8 % (35.4-49); HEMOGLOBIN 12.9 GM/dL (11.7-16.9); LYMPH % 9.8 % (8-40); MCH 31.3 pg (25.7-33.7); MCHC 34.1 g/dl (32.0-35.9); MEAN CELL VOLUME 91.9 fl (80-96); MEAN PLT VOLUME 9.2 fl (7.5-11.1); MONO % 7.8 % (3.8-10.2); NEUT % 81.1 % (42.8-82.8); PLATELET COUNT 142 10^3/uL (134-434); RBC 4.12 M/mm3 (4.00-5.60); RDW 13.9 % (11.9-15.9); WHITE BLOOD COUNT 9.7 K/mm3 (4.0-10.0)
[2023-09-12 08:35] LABS: POTASSIUM 4.1 mmol/L (3.5-5.1)
[2023-09-12 08:36] LABS: CALCIUM 8.1 mg/dL (8.5-10.1)
[2023-09-12 08:38] LABS: BLOOD UREA NITROGEN 22.2 mg/dL (7-18)
[2023-09-12 08:41] LABS: CREATININE 0.9 mg/dL (0.55-1.3)
[2023-09-12 08:42] LABS: BILIRUBIN,TOTAL 0.8 mg/dL (0.2-1); TOT PROT 6.5 g/dl (6.4-8.2)
[2023-09-12] MEDS: POLYETHYLENE GLYCOL (HEALTHYLAX) 3350 17 GM PACKET PO ONE (17:04)
[2023-09-12] MEDS: POLYETHYLENE GLYCOL (HEALTHYLAX) 3350 17 GM PACKET PO SCH (21:15)
[2023-09-12] MEDS: DOCUSATE SODIUM 100 MG CAPSULE (FP) PO SCH (21:15)
[2023-09-12] MEDS: HALOPERIDOL LACTATE 5 MG/ML IM ONE (23:28)
[2023-09-13 08:28] LABS: CALCIUM 8.2 mg/dL (8.5-10.1); POTASSIUM 3.9 mmol/L (3.5-5.1)
[2023-09-13 08:29] LABS: ALBUMIN 3.1 g/dl (3.4-5.0); BLOOD UREA NITROGEN 18.6 mg/dL (7-18)
[2023-09-13 08:32] LABS: CREATININE 0.9 mg/dL (0.55-1.3)
[2023-09-13] MEDS: SODIUM CHLORIDE 1,000 ML IV SCH (08:33)
[2023-09-13 08:34] LABS: BILIRUBIN,TOTAL 1.1 mg/dL (0.2-1); TOT PROT 6.6 g/dl (6.4-8.2)
[2023-09-13] MEDS: ACETAMINOPHEN 325 MG TABLET (FP) PO PRN (11:04)
[2023-09-13] MEDS: LORazepam 0.5 MG TABLET PO PRN (11:37)
[2023-09-13] MEDS: BACITRACIN ZINC 15 GM TUBE TOPICAL OINTMENT TP SCH (16:57)
[2023-09-13] MEDS: BISACODYL 5 MG TABLET.DR (FP) PO PRN (17:39)
[2023-09-14 07:53] LABS: HEMATOCRIT 37.3 % (35.4-49); HEMOGLOBIN 12.6 GM/dL (11.7-16.9); MCH 30.9 pg (25.7-33.7); MCHC 33.8 g/dl (32.0-35.9); MEAN CELL VOLUME 91.5 fl (80-96); MEAN PLT VOLUME 9.2 fl (7.5-11.1); PLATELET COUNT 159 10^3/uL (134-434); RBC 4.08 M/mm3 (4.00-5.60); RDW 13.6 % (11.9-15.9); WHITE BLOOD COUNT 20.3 K/mm3 (4.0-10.0)
[2023-09-14 08:10] LABS: CALCIUM 7.9 mg/dL (8.5-10.1)
[2023-09-14 08:11] LABS: ALBUMIN 2.7 g/dl (3.4-5.0)
[2023-09-14 08:14] LABS: CREATININE 0.9 mg/dL (0.55-1.3)
[2023-09-14 08:17] LABS: BILIRUBIN,TOTAL 1.4 mg/dL (0.2-1); TOT PROT 6.1 g/dl (6.4-8.2)
[2023-09-14 09:43] LABS: BASO % 0.2 % (0-2.0); EOS % 0.1 % (0-4.5); HEMOGLOBIN 13.1 GM/dL (11.7-16.9); LYMPH % 4.2 % (8-40); MCH 31.3 pg (25.7-33.7); MCHC 34.4 g/dl (32.0-35.9); MEAN CELL VOLUME 90.9 fl (80-96); MEAN PLT VOLUME 9.3 fl (7.5-11.1); MONO % 4.6 % (3.8-10.2); NEUT % 90.9 % (42.8-82.8); PLATELET COUNT 156 10^3/uL (134-434); RBC 4.18 M/mm3 (4.00-5.60); WHITE BLOOD COUNT 24.1 K/mm3 (4.0-10.0)
[2023-09-14 09:58] LABS: ANISOCYTOSIS 0; HELMET CELLS 0; HOWELL-JOLLY BODIES 0; MACROCYTOSIS 0; OVALOCYTE 0; ROULEAU 0; SICKELED CELLS 0; TARGET CELLS 0; TEAR DROP CELLS 0; TOXIC GRANULATION 0
[2023-09-14 10:23] LABS: ANISOCYTOSIS 0; HELMET CELLS 0; HOWELL-JOLLY BODIES 0; MACROCYTOSIS 0; OVALOCYTE 0; ROULEAU 0; SICKELED CELLS 0; TARGET CELLS 0; TEAR DROP CELLS 0; TOXIC GRANULATION 0
[2023-09-14] MEDS: CEFEPIME 1 GM in DEXTROSE 5%-WATER - 50 ML IVPB SCH (13:05)
[2023-09-14 15:53] LABS: EPI CELLS 24 /uL (0-25.1); HYALINE CASTS 59 /uL (0-3.1); PH,URINE 5.5 (5.0-8.0); URINE APPEARANCE TURBID; URINE BACTERIA >9,000 /uL (0-1359); URINE BILIRUBIN 1+ (NEGATIVE); URINE COLOR ORANGE; URINE GLUCOSE (UA) NEGATIVE (NEGATIVE); URINE KETONE TRACE (NEGATIVE); URINE LEUK ESTERASE 2+ (NEGATIVE); URINE NITRITE POSITIVE (NEGATIVE); URINE PROTEIN 3+ (NEGATIVE); URINE WBC 25855 /uL (0-25.8)
[2023-09-14 16:38] LABS: URINE RBC 4961.2 /uL (0-23.9); YEAST FEW (NEGATIVE)
[2023-09-15 08:11] LABS: BASO % 0.4 % (0-2.0); EOS % 0.6 % (0-4.5); HEMATOCRIT 34.2 % (35.4-49); HEMOGLOBIN 11.6 GM/dL (11.7-16.9); LYMPH % 5.3 % (8-40); MEAN CELL VOLUME 91.1 fl (80-96); MEAN PLT VOLUME 8.8 fl (7.5-11.1); MONO % 6.3 % (3.8-10.2); NEUT % 87.4 % (42.8-82.8); PLATELET COUNT 158 10^3/uL (134-434); RBC 3.75 M/mm3 (4.00-5.60); RDW 13.7 % (11.9-15.9)
[2023-09-15 08:30] LABS: POTASSIUM 3.7 mmol/L (3.5-5.1)
[2023-09-15 08:57] LABS: CALCIUM 7.6 mg/dL (8.5-10.1)
[2023-09-15 08:58] LABS: ALBUMIN 2.4 g/dl (3.4-5.0); BLOOD UREA NITROGEN 18.9 mg/dL (7-18)
[2023-09-15 09:01] LABS: CREATININE 0.9 mg/dL (0.55-1.3)
[2023-09-15 09:03] LABS: TOT PROT 5.5 g/dl (6.4-8.2)
[2023-09-15 09:04] LABS: BILIRUBIN,TOTAL 1.5 mg/dL (0.2-1)
[2023-09-16 08:24] LABS: BASO % 0.4 % (0-2.0); EOS % 1.2 % (0-4.5); HEMATOCRIT 34.4 % (35.4-49); LYMPH % 8.2 % (8-40); MCH 31.4 pg (25.7-33.7); MEAN CELL VOLUME 89.9 fl (80-96); MEAN PLT VOLUME 8.8 fl (7.5-11.1); MONO % 7.3 % (3.8-10.2); NEUT % 82.9 % (42.8-82.8); PLATELET COUNT 194 10^3/uL (134-434); RBC 3.82 M/mm3 (4.00-5.60); RDW 13.7 % (11.9-15.9)
[2023-09-16 08:48] LABS: CALCIUM 8.2 mg/dL (8.5-10.1)
[2023-09-16 08:49] LABS: ALBUMIN 2.6 g/dl (3.4-5.0)
[2023-09-16 08:52] LABS: CREATININE 0.7 mg/dL (0.55-1.3)
[2023-09-16 08:54] LABS: BILIRUBIN,TOTAL 0.8 mg/dL (0.2-1); TOT PROT 5.8 g/dl (6.4-8.2)
[2023-09-16] MEDS: ENOXAPARIN NA (PORCINE) 40 MG/0.4 ML DISP.SYRIN SQ SCH (10:59)
[2023-09-16] MEDS: CEFTRIAXONE 1 GM in DEXTROSE 5%-WATER - 50 ML IVPB SCH (15:35)
[2023-09-17 08:32] LABS: BASO % 0.8 % (0-2.0); EOS % 1.8 % (0-4.5); HEMATOCRIT 37.4 % (35.4-49); HEMOGLOBIN 12.8 GM/dL (11.7-16.9); LYMPH % 10.4 % (8-40); MCHC 34.3 g/dl (32.0-35.9); MEAN CELL VOLUME 90.5 fl (80-96); MEAN PLT VOLUME 8.5 fl (7.5-11.1); MONO % 9.6 % (3.8-10.2); NEUT % 77.4 % (42.8-82.8); PLATELET COUNT 235 10^3/uL (134-434); RBC 4.13 M/mm3 (4.00-5.60); RDW 13.4 % (11.9-15.9); WHITE BLOOD COUNT 8.8 K/mm3 (4.0-10.0)
[2023-09-17 09:28] LABS: POTASSIUM 4.1 mmol/L (3.5-5.1)
[2023-09-17 09:31] LABS: ALBUMIN 2.8 g/dl (3.4-5.0); BLOOD UREA NITROGEN 20.3 mg/dL (7-18)
[2023-09-17 09:33] LABS: CALCIUM 8.1 mg/dL (8.5-10.1); MAGNESIUM 2.3 mg/dL (1.8-2.4)
[2023-09-17 09:35] LABS: TOT PROT 6.1 g/dl (6.4-8.2)
[2023-09-17 09:36] LABS: BILIRUBIN,TOTAL 0.7 mg/dL (0.2-1); PHOSPHOROUS 3.2 mg/dL (2.5-4.9)
[2023-09-17 09:37] LABS: CREATININE 0.8 mg/dL (0.55-1.3)
[2023-09-17] MEDS: SODIUM CHLORIDE 0.9% 500 ML INFUS.BAG IV ONE (16:53)
[2023-09-17] MEDS: QUEtiapine FUMARATE 25 MG TABLET PO SCH (22:26)
[2023-09-18 09:25] LABS: BASO % 0.7 % (0-2.0); EOS % 2.2 % (0-4.5); HEMATOCRIT 35.8 % (35.4-49); HEMOGLOBIN 12.3 GM/dL (11.7-16.9); LYMPH % 10.6 % (8-40); MCH 31.1 pg (25.7-33.7); MCHC 34.4 g/dl (32.0-35.9); MEAN CELL VOLUME 90.3 fl (80-96); MEAN PLT VOLUME 8.4 fl (7.5-11.1); MONO % 8.3 % (3.8-10.2); NEUT % 78.2 % (42.8-82.8); PLATELET COUNT 267 10^3/uL (134-434); RBC 3.97 M/mm3 (4.00-5.60); RDW 13.9 % (11.9-15.9); WHITE BLOOD COUNT 8.5 K/mm3 (4.0-10.0)
[2023-09-18 09:46] LABS: POTASSIUM 4.3 mmol/L (3.5-5.1)
[2023-09-18 09:49] LABS: ALBUMIN 2.7 g/dl (3.4-5.0); BLOOD UREA NITROGEN 26.2 mg/dL (7-18); CALCIUM 8.6 mg/dL (8.5-10.1)
[2023-09-18 09:54] LABS: BILIRUBIN,TOTAL 0.6 mg/dL (0.2-1); TOT PROT 5.9 g/dl (6.4-8.2)
[2023-09-18 15:34] VITALS: BP 110/74; PULSE 85; RESP 18; TEMP 97.9
== END 2023-09-18 16:54 | DRG 689 ==
LOC: JER 09:51 → UNDOADMOB 15:19 → INTOOBSV 15:19 → JERBED 15:19 → J8W 18:06 → OBSVTOIN 09-10 12:42
PROVIDERS: ADMIT Internal Medicine; ATTEND Internal Medicine
DX: N39.0 Urinary tract infection, site not specified (principal); E43 Unspecified severe protein-calorie malnutrition; I69.354 Hemiplegia and hemiparesis following cerebral infarction affecting left non-dominant side; I48.91 Unspecified atrial fibrillation; N40.0 Benign prostatic hyperplasia without lower urinary tract symptoms; M25.552 Pain in left hip; R33.8 Other retention of urine; F03.90 Unspecified dementia, unspecified severity, without behavioral disturbance, psychotic disturbance, mood disturbance, and anxiety; R41.82 Altered mental status, unspecified; R31.9 Hematuria, unspecified; D72.829 Elevated white blood cell count, unspecified; K59.00 Constipation, unspecified; R29.6 Repeated falls; W01.0XXA Fall on same level from slipping, tripping and stumbling without subsequent striking against object, initial encounter; B95.2 Enterococcus as the cause of diseases classified elsewhere; B96.20 Unspecified Escherichia coli [E. coli] as the cause of diseases classified elsewhere; Y92.090 Kitchen in other non-institutional residence as the place of occurrence of the external cause; Y99.9 Unspecified external cause status; Z96.643 Presence of artificial hip joint, bilateral; Z99.3 Dependence on wheelchair; Z68.22 Body mass index [BMI] 22.0-22.9, adult
CPT/HCPCS: 0241U-QW; 36415; 70450-TC; 71045-TC-FY; 72125-TC; 72170-TC-FY; 76775-TC; 80048; 80053; 81003; 82550; 82553; 83735; 83880; 84100; 84484; 85025; 86850; 86900; 86901; 87040; 87086; 87186; 87635; 93005; 93010; 97116-GP; 97161-GP; 99285-25; G0378

== ENCOUNTER 2023-10-04 11:49 | Inpatient (IN) | payer OTHER, MEDICARE ==
[2023-10-04 13:23] LABS: VENOUS BASE EXCESS -2.1 mmol/L (-2-2); VENOUS O2 SATURATION 64.3 % (70-80); VENOUS PCO2 40.6 mmHg (38-52); VENOUS PH 7.371 (7.310-7.410)
[2023-10-04 13:24] LABS: BASO % 0.5 % (0-2.0); EOS % 1.7 % (0-4.5); HEMATOCRIT 34.3 % (35.4-49); HEMOGLOBIN 11.6 GM/dL (11.7-16.9); LYMPH % 11.9 % (8-40); MCH 30.5 pg (25.7-33.7); MCHC 33.7 g/dl (32.0-35.9); MEAN CELL VOLUME 90.7 fl (80-96); MEAN PLT VOLUME 8.3 fl (7.5-11.1); MONO % 7.5 % (3.8-10.2); NEUT % 78.4 % (42.8-82.8); PLATELET COUNT 195 10^3/uL (134-434); RBC 3.78 M/mm3 (4.00-5.60); RDW 14.6 % (11.9-15.9); WHITE BLOOD COUNT 7.8 K/mm3 (4.0-10.0)
[2023-10-04 13:35] LABS: INR 1.43 (0.83-1.09); PROTHROMBIN TIME (PATIENT) 16.3 SEC (9.7-13.0)
[2023-10-04] MEDS: SODIUM CHLORIDE 0.9% 500 ML INFUS.BAG IV ONE (13:36)
[2023-10-04 13:37] LABS: ACTIVATED PTT 32.3 SECONDS (25.2-36.5)
[2023-10-04 13:44] LABS: POTASSIUM 4.4 mmol/L (3.5-5.1)
[2023-10-04 13:46] LABS: CALCIUM 8.4 mg/dL (8.5-10.1)
[2023-10-04 13:47] LABS: BLOOD UREA NITROGEN 10.8 mg/dL (7-18)
[2023-10-04 13:50] LABS: CREATININE 1.1 mg/dL (0.55-1.3)
[2023-10-04 13:51] LABS: TOT PROT 6.4 g/dl (6.4-8.2)
[2023-10-04 13:52] LABS: BILIRUBIN,TOTAL 0.6 mg/dL (0.2-1)
[2023-10-04] MEDS ORDERED: HALOPERIDOL LACTATE 5 MG/ML ONE (13:52)
[2023-10-04] MEDS: HALOPERIDOL LACTATE 5 MG/ML IM ONE (14:04)
[2023-10-04 14:43] LABS: EPI CELLS 1 /uL (0-25.1); HYALINE CASTS 6 /uL (0-3.1); PH,URINE 5.5 (5.0-8.0); URINE APPEARANCE TURBID; URINE BACTERIA 97 /uL (0-1359); URINE BILIRUBIN 1+ (NEGATIVE); URINE COLOR RED; URINE GLUCOSE (UA) NEGATIVE (NEGATIVE); URINE KETONE NEGATIVE (NEGATIVE); URINE LEUK ESTERASE 3+ (NEGATIVE); URINE NITRITE NEGATIVE (NEGATIVE); URINE PROTEIN 3+ (NEGATIVE); URINE RBC 22214.1 /uL (0-23.9); URINE WBC 4772 /uL (0-25.8)
[2023-10-04 14:44] LABS: YEAST NEGATIVE (NEGATIVE)
[2023-10-04] MEDS ORDERED: PIPERACILLIN/TAZOB 4.5 GM 4.5 GM/100 ML BAG IVPB ONE (15:20)
[2023-10-04] MEDS ORDERED: VANCOMYCIN 1 GRAM (PRE-DOCKED) 1,000 MG/250 ML BAG IVPB ONE (15:20)
[2023-10-04] MEDS: PIPERACILLIN/TAZOB 4.5 GM 4.5 GM in DEXTROSE 5%-WATER 100 ML IVPB ONE (15:26)
[2023-10-04] MEDS: VANCOMYCIN 1,000 MG in DEXTROSE 5%-WATER - 250 ML IVPB ONE (16:21)
[2023-10-04] MEDS ORDERED: POLYETHYLENE GLYCOL (HEALTHYLAX) 3350 17 GM PACKET PO PRN (17:10)
[2023-10-04] MEDS ORDERED: BISACODYL 5 MG TABLET.DR (FP) PO PRN (17:10)
[2023-10-04] MEDS: MELATONIN 5 MG TABLETS PO SCH (21:25)
[2023-10-04] MEDS: DOCUSATE SODIUM 100 MG CAPSULE (FP) PO SCH (21:25)
[2023-10-04] MEDS: QUEtiapine FUMARATE 25 MG TABLET PO SCH (21:26)
[2023-10-04] MEDS: hydrOXYzine PAMOATE 25 MG CAPSULE (FP) PO SCH (21:26)
[2023-10-04 23:24] VITALS: BMI 15.5
[2023-10-05 08:00] LABS: BASO % 0.8 % (0-2.0); HEMATOCRIT 35.1 % (35.4-49); HEMOGLOBIN 11.6 GM/dL (11.7-16.9); LYMPH % 10.7 % (8-40); MCH 30.1 pg (25.7-33.7); MCHC 33.1 g/dl (32.0-35.9); MEAN CELL VOLUME 90.8 fl (80-96); MEAN PLT VOLUME 8.6 fl (7.5-11.1); MONO % 8.7 % (3.8-10.2); NEUT % 77.8 % (42.8-82.8); PLATELET COUNT 197 10^3/uL (134-434); RBC 3.87 M/mm3 (4.00-5.60); RDW 14.1 % (11.9-15.9); WHITE BLOOD COUNT 8.2 K/mm3 (4.0-10.0)
[2023-10-05 08:12] LABS: POTASSIUM 3.9 mmol/L (3.5-5.1)
[2023-10-05 08:16] LABS: CALCIUM 8.7 mg/dL (8.5-10.1)
[2023-10-05 08:17] LABS: ALBUMIN 3.2 g/dl (3.4-5.0); BLOOD UREA NITROGEN 10.1 mg/dL (7-18)
[2023-10-05 08:21] LABS: BILIRUBIN,TOTAL 0.8 mg/dL (0.2-1); TOT PROT 6.4 g/dl (6.4-8.2)
[2023-10-05] MEDS: TAMSULOSIN HCL 0.4 MG CAP PO SCH (10:13)
[2023-10-05] MEDS: metoPROLOL SUCCINATE 25 MG TAB.SR.24H (FP) PO SCH (10:13)
[2023-10-05] MEDS: CEFTRIAXONE 1 GM in DEXTROSE 5%-WATER - 50 ML IVPB SCH (11:50)
[2023-10-05] MEDS: HALOPERIDOL LACTATE 5 MG/ML IM PRN (12:52)
[2023-10-05] MEDS: ACETAMINOPHEN 325 MG TABLET (FP) PO PRN (13:42)
[2023-10-05] MEDS: QUEtiapine FUMARATE 25 MG TABLET PO SCH (21:25)
[2023-10-05 22:20] VITALS: RESP 18
[2023-10-06 08:14] LABS: BASO % 0.7 % (0-2.0); EOS % 3.8 % (0-4.5); HEMATOCRIT 34.9 % (35.4-49); HEMOGLOBIN 11.8 GM/dL (11.7-16.9); LYMPH % 12.8 % (8-40); MCH 30.7 pg (25.7-33.7); MCHC 33.8 g/dl (32.0-35.9); MEAN CELL VOLUME 90.9 fl (80-96); MEAN PLT VOLUME 8.6 fl (7.5-11.1); MONO % 8.2 % (3.8-10.2); NEUT % 74.5 % (42.8-82.8); PLATELET COUNT 166 10^3/uL (134-434); RBC 3.84 M/mm3 (4.00-5.60); RDW 14.7 % (11.9-15.9); WHITE BLOOD COUNT 6.3 K/mm3 (4.0-10.0)
[2023-10-06 08:36] LABS: POTASSIUM 3.8 mmol/L (3.5-5.1)
[2023-10-06 08:44] LABS: ALBUMIN 2.8 g/dl (3.4-5.0); CALCIUM 8.1 mg/dL (8.5-10.1)
[2023-10-06 08:45] LABS: BLOOD UREA NITROGEN 11.8 mg/dL (7-18)
[2023-10-06 08:47] LABS: CREATININE 0.8 mg/dL (0.55-1.3)
[2023-10-06 08:48] LABS: TOT PROT 5.9 g/dl (6.4-8.2)
[2023-10-06 08:49] LABS: BILIRUBIN,TOTAL 0.7 mg/dL (0.2-1)
[2023-10-06] MEDS: MULTIVITAMINS (DAILY MVI) TABLET (FP) PO SCH (09:37)
[2023-10-08 07:01] VITALS: BP 130/78; PULSE 78; TEMP 98.4
== END 2023-10-08 12:02 | DRG 698 ==
LOC: JER 11:49 → JERBED 15:20 → J7W 19:10 → J5S 10-06 21:36
PROVIDERS: ADMIT Internal Medicine; ATTEND Internal Medicine
DX: T83.028A Displacement of other urinary catheter, initial encounter (principal); E43 Unspecified severe protein-calorie malnutrition; S37.30XA Unspecified injury of urethra, initial encounter; Z68.1 Body mass index [BMI] 19.9 or less, adult; I69.354 Hemiplegia and hemiparesis following cerebral infarction affecting left non-dominant side; R33.9 Retention of urine, unspecified; R31.9 Hematuria, unspecified; F03.90 Unspecified dementia, unspecified severity, without behavioral disturbance, psychotic disturbance, mood disturbance, and anxiety; I10 Essential (primary) hypertension; Y83.9 Surgical procedure, unspecified as the cause of abnormal reaction of the patient, or of later complication, without mention of misadventure at the time of the procedure; X58.XXXA Exposure to other specified factors, initial encounter; Y93.9 Activity, unspecified; Y92.89 Other specified places as the place of occurrence of the external cause; Y99.9 Unspecified external cause status
CPT/HCPCS: 0241U-QW; 36415; 71045-TC-FY; 76775-TC; 76856-TC; 80053; 81003; 82803; 83605; 84484; 85025; 85610; 85730; 86850; 86900; 86901; 87040; 87086; 87186; 87635; 93005; 93010; 99285-25

== ENCOUNTER 2023-10-25 11:10 | Inpatient (IN) | payer OTHER, MEDICARE ==
[2023-10-25 11:41] VITALS: RESP 18
[2023-10-25 15:07] LABS: EPI CELLS 3 /uL (0-25.1); HYALINE CASTS 3 /uL (0-3.1); URINE APPEARANCE TURBID; URINE BILIRUBIN 1+ (NEGATIVE); URINE COLOR ORANGE; URINE GLUCOSE (UA) NEGATIVE (NEGATIVE); URINE KETONE NEGATIVE (NEGATIVE); URINE LEUK ESTERASE 3+ (NEGATIVE); URINE NITRITE POSITIVE (NEGATIVE); URINE PROTEIN 3+ (NEGATIVE); URINE WBC 2377 /uL (0-25.8)
[2023-10-25 15:29] LABS: URINE BACTERIA 4 /uL (0-1359); URINE RBC 15691 /uL (0-23.9); YEAST NONE SEEN (NEGATIVE)
[2023-10-25] MEDS: SODIUM CHLORIDE 0.9% 500 ML INFUS.BAG IV ONE (16:11)
[2023-10-25 16:15] LABS: BASO % 0.8 % (0-2.0); EOS % 1.2 % (0-4.5); HEMATOCRIT 33.9 % (35.4-49); LYMPH % 22.2 % (8-40); MCH 29.8 pg (25.7-33.7); MCHC 32.5 g/dl (32.0-35.9); MEAN CELL VOLUME 91.9 fl (80-96); MEAN PLT VOLUME 7.5 fl (7.5-11.1); MONO % 9.1 % (3.8-10.2); NEUT % 66.7 % (42.8-82.8); PLATELET COUNT 229 10^3/uL (134-434); RBC 3.69 M/mm3 (4.00-5.60); RDW 15.1 % (11.9-15.9); WHITE BLOOD COUNT 6.9 K/mm3 (4.0-10.0)
[2023-10-25] MEDS ORDERED: POLYETHYLENE GLYCOL (HEALTHYLAX) 3350 17 GM PACKET PO PRN (16:31)
[2023-10-25] MEDS ORDERED: BISACODYL 5 MG TABLET.DR (FP) PO PRN (16:31)
[2023-10-25 16:33] LABS: POTASSIUM 4.4 mmol/L (3.5-5.1)
[2023-10-25 16:35] LABS: CALCIUM 8.6 mg/dL (8.5-10.1)
[2023-10-25 16:36] LABS: ALBUMIN 2.9 g/dl (3.4-5.0); BLOOD UREA NITROGEN 20.7 mg/dL (7-18)
[2023-10-25 16:39] LABS: CREATININE 1.5 mg/dL (0.55-1.3)
[2023-10-25 16:40] LABS: TOT PROT 6.1 g/dl (6.4-8.2)
[2023-10-25 16:41] LABS: BILIRUBIN,TOTAL 0.5 mg/dL (0.2-1)
[2023-10-25] MEDS ORDERED: CEFTRIAXONE 1 GM/50 ML BAG ONE (16:47)
[2023-10-25] MEDS: CEFTRIAXONE 1,000 MG in DEXTROSE 5%-WATER - 50 ML IVPB ONE (16:53)
[2023-10-25] MEDS ORDERED: MELATONIN 5 MG TABLETS ONE (21:50)
[2023-10-25] MEDS ORDERED: hydrOXYzine PAMOATE 25 MG CAPSULE (FP) PO ONE (21:50)
[2023-10-25] MEDS ORDERED: QUEtiapine FUMARATE 25 MG TABLET ONE (21:50)
[2023-10-25] MEDS ORDERED: DOCUSATE SODIUM 100 MG CAPSULE (FP) PO ONE (21:51)
[2023-10-25] MEDS: SODIUM CHLORIDE 1,000 ML IV ONE (22:04)
[2023-10-25] MEDS: DOCUSATE SODIUM 100 MG CAPSULE (FP) PO SCH (22:04)
[2023-10-25] MEDS: hydrOXYzine PAMOATE 25 MG CAPSULE (FP) PO SCH (22:05)
[2023-10-25] MEDS: MELATONIN 5 MG TABLETS PO SCH (22:05)
[2023-10-25] MEDS: QUEtiapine FUMARATE 25 MG TABLET PO SCH (22:05)
[2023-10-25] MEDS: SODIUM CHLORIDE 0.9% 500 ML INFUS.BAG IV SCH (23:28)
[2023-10-26 02:01] VITALS: BMI 24.2
[2023-10-26 09:39] LABS: BASO % 0.6 % (0-2.0); EOS % 1.2 % (0-4.5); HEMATOCRIT 29.6 % (35.4-49); HEMOGLOBIN 9.8 GM/dL (11.7-16.9); LYMPH % 13.5 % (8-40); MCHC 33.2 g/dl (32.0-35.9); MEAN CELL VOLUME 90.4 fl (80-96); MEAN PLT VOLUME 7.8 fl (7.5-11.1); MONO % 7.7 % (3.8-10.2); PLATELET COUNT 200 10^3/uL (134-434); RBC 3.27 M/mm3 (4.00-5.60)
[2023-10-26 09:54] LABS: POTASSIUM 3.9 mmol/L (3.5-5.1)
[2023-10-26 09:58] LABS: ALBUMIN 2.8 g/dl (3.4-5.0)
[2023-10-26] MEDS: TAMSULOSIN HCL 0.4 MG CAP PO SCH (09:58)
[2023-10-26] MEDS: metoPROLOL SUCCINATE 25 MG TAB.SR.24H (FP) PO SCH (09:58)
[2023-10-26 09:59] LABS: BLOOD UREA NITROGEN 15.9 mg/dL (7-18)
[2023-10-26 10:02] LABS: CREATININE 1.1 mg/dL (0.55-1.3)
[2023-10-26 10:03] LABS: BILIRUBIN,TOTAL 0.5 mg/dL (0.2-1); TOT PROT 5.6 g/dl (6.4-8.2)
[2023-10-27] MEDS: QUEtiapine FUMARATE 25 MG TABLET PO SCH (11:57)
[2023-10-28] MEDS: SODIUM CHLORIDE 500 ML IV ONE (15:22)
[2023-10-28] MEDS: ACETAMINOPHEN 325 MG TABLET (FP) PO PRN (17:22)
[2023-10-29 07:37] LABS: HEMATOCRIT 32.7 % (35.4-49); HEMOGLOBIN 11.1 GM/dL (11.7-16.9); MCH 30.6 pg (25.7-33.7); MCHC 34.1 g/dl (32.0-35.9); MEAN CELL VOLUME 89.7 fl (80-96); MEAN PLT VOLUME 7.3 fl (7.5-11.1); PLATELET COUNT 195 10^3/uL (134-434); RBC 3.64 M/mm3 (4.00-5.60); RDW 14.6 % (11.9-15.9); WHITE BLOOD COUNT 6.9 K/mm3 (4.0-10.0)
[2023-10-29 08:00] LABS: CALCIUM 8.2 mg/dL (8.5-10.1); POTASSIUM 4.3 mmol/L (3.5-5.1)
[2023-10-29 08:01] LABS: BLOOD UREA NITROGEN 16.4 mg/dL (7-18)
[2023-10-29 08:04] LABS: CREATININE 0.9 mg/dL (0.55-1.3)
[2023-10-29] MEDS: ASPIRIN COATED 81 MG TABLET.EC PO SCH (09:25)
[2023-10-29 14:28] VITALS: BP 99/56; PULSE 86; TEMP 97.4
== END 2023-10-29 20:50 | DRG 699 ==
LOC: JER 11:10 → JERBED 16:07 → OBSVTOIN 16:07 → J7W 10-26 01:49 → J6S 10-26 19:55
PROVIDERS: ADMIT Internal Medicine; ATTEND Internal Medicine
DX: T83.021A Displacement of indwelling urethral catheter, initial encounter (principal); G81.94 Hemiplegia, unspecified affecting left nondominant side; F03.90 Unspecified dementia, unspecified severity, without behavioral disturbance, psychotic disturbance, mood disturbance, and anxiety; R31.0 Gross hematuria; N40.1 Benign prostatic hyperplasia with lower urinary tract symptoms; R33.8 Other retention of urine; I95.9 Hypotension, unspecified; I48.91 Unspecified atrial fibrillation; Y84.8 Other medical procedures as the cause of abnormal reaction of the patient, or of later complication, without mention of misadventure at the time of the procedure; Z96.643 Presence of artificial hip joint, bilateral
CPT/HCPCS: 36415; 76775-TC; 76856-TC; 80048; 80053; 81003; 85025; 85027; 87040; 87077; 87086; 87635; 93005; 93010; 99285-25

== ENCOUNTER 2023-12-05 10:20 | Inpatient (IN) | payer OTHER, MEDICARE ==
[2023-12-05] MEDS ORDERED: LIDOCAINE HCL 2% JELLY 6 ML TP ONE (11:59)
[2023-12-05 12:36] LABS: BASO % 0.9 % (0-2.0); EOS % 1.4 % (0-4.5); HEMATOCRIT 28.9 % (35.4-49); HEMOGLOBIN 9.3 GM/dL (11.7-16.9); LYMPH % 18.6 % (8-40); MCH 27.8 pg (25.7-33.7); MCHC 32.4 g/dl (32.0-35.9); MEAN CELL VOLUME 85.8 fl (80-96); MEAN PLT VOLUME 7.7 fl (7.5-11.1); MONO % 9.1 % (3.8-10.2); PLATELET COUNT 313 10^3/uL (134-434); RBC 3.36 M/mm3 (4.00-5.60); RDW 15.5 % (11.9-15.9); WHITE BLOOD COUNT 7.9 K/mm3 (4.0-10.0)
[2023-12-05 12:38] LABS: EPI CELLS 2 /uL (0-25.1); HYALINE CASTS 1 /uL (0-3.1); PH,URINE 6.5 (5.0-8.0); URINE APPEARANCE CLOUDY; URINE BACTERIA 1110 /uL (0-1359); URINE BILIRUBIN NEGATIVE (NEGATIVE); URINE COLOR RED; URINE GLUCOSE (UA) NEGATIVE (NEGATIVE); URINE KETONE NEGATIVE (NEGATIVE); URINE LEUK ESTERASE 3+ (NEGATIVE); URINE NITRITE NEGATIVE (NEGATIVE); URINE PROTEIN 2+ (NEGATIVE); URINE WBC 2063 /uL (0-25.8)
[2023-12-05 12:46] LABS: ACTIVATED PTT 32.3 SECONDS (25.2-36.5); INR 1.39 (0.83-1.09); PROTHROMBIN TIME (PATIENT) 15.8 SEC (9.7-13.0)
[2023-12-05] MEDS ORDERED: CEFTRIAXONE 1 GM/50 ML BAG ONE (12:58)
[2023-12-05] MEDS: CEFTRIAXONE 1,000 MG in DEXTROSE 5%-WATER - 50 ML IVPB ONE (13:02)
[2023-12-05 13:09] LABS: CHLORIDE 105 mmol/L (98-107)
[2023-12-05 13:12] LABS: ALBUMIN 2.5 g/dl (3.4-5.0); BLOOD UREA NITROGEN 20.8 mg/dL (7-18); CO2 21 mmol/L (21-32); GLUCOSE,RANDOM 78 mg/dL (74-106)
[2023-12-05 13:15] LABS: CREATININE 1.3 mg/dL (0.55-1.3); SGOT/AST 22 U/L (15-37); SGPT/ALT 16 U/L (13-61)
[2023-12-05 13:23] LABS: BILIRUBIN,TOTAL 0.3 mg/dL (0.2-1)
[2023-12-05 13:45] LABS: URINE RBC 24193 /uL (0-23.9); YEAST NONE SEEN (NEGATIVE)
[2023-12-05 14:36] LABS: POTASSIUM 4.7 mmol/L (3.5-5.1)
[2023-12-05 14:39] LABS: BLOOD UREA NITROGEN 20.1 mg/dL (7-18); CALCIUM 8.7 mg/dL (8.5-10.1)
[2023-12-05 14:42] LABS: CREATININE 1.2 mg/dL (0.55-1.3)
[2023-12-05 14:44] LABS: BILIRUBIN,TOTAL 0.3 mg/dL (0.2-1); TOT PROT 6.8 g/dl (6.4-8.2)
[2023-12-05] MEDS ORDERED: BISACODYL 5 MG TABLET.DR (FP) PO PRN (15:03)
[2023-12-05] MEDS ORDERED: ACETAMINOPHEN 325 MG TABLET (FP) PO PRN (15:03)
[2023-12-05] MEDS ORDERED: POLYETHYLENE GLYCOL (HEALTHYLAX) 3350 17 GM PACKET PO PRN (15:03)
[2023-12-05] MEDS: DOCUSATE SODIUM 100 MG CAPSULE (FP) PO SCH (21:25)
[2023-12-05] MEDS: MELATONIN 5 MG TABLETS PO SCH (21:26)
[2023-12-05] MEDS: QUEtiapine FUMARATE 25 MG TABLET PO SCH (21:26)
[2023-12-05] MEDS: MIDODRINE HCL 5 MG TABLET PO SCH (21:26)
[2023-12-06 09:19] LABS: BASO % 0.4 % (0-2.0); EOS % 0.2 % (0-4.5); HEMATOCRIT 31.4 % (35.4-49); HEMOGLOBIN 10.4 GM/dL (11.7-16.9); MCH 27.8 pg (25.7-33.7); MCHC 33.2 g/dl (32.0-35.9); MEAN CELL VOLUME 83.8 fl (80-96); MEAN PLT VOLUME 7.8 fl (7.5-11.1); MONO % 5.9 % (3.8-10.2); NEUT % 84.5 % (42.8-82.8); PLATELET COUNT 325 10^3/uL (134-434); RBC 3.75 M/mm3 (4.00-5.60); RDW 15.7 % (11.9-15.9); WHITE BLOOD COUNT 10.5 K/mm3 (4.0-10.0)
[2023-12-06 09:42] LABS: POTASSIUM 4.7 mmol/L (3.5-5.1)
[2023-12-06 09:53] LABS: ALBUMIN 2.9 g/dl (3.4-5.0); BLOOD UREA NITROGEN 21.5 mg/dL (7-18); CALCIUM 9.1 mg/dL (8.5-10.1)
[2023-12-06 09:56] LABS: CREATININE 1.2 mg/dL (0.55-1.3)
[2023-12-06 09:57] LABS: BILIRUBIN,TOTAL 0.4 mg/dL (0.2-1); TOT PROT 6.8 g/dl (6.4-8.2)
[2023-12-06] MEDS: QUEtiapine FUMARATE 25 MG TABLET PO SCH (10:28)
[2023-12-06] MEDS: CEFTRIAXONE 1 GM in DEXTROSE 5%-WATER - 50 ML IVPB SCH (10:28)
[2023-12-07 10:47] LABS: POTASSIUM 4.1 mmol/L (3.5-5.1)
[2023-12-07 10:51] LABS: CALCIUM 8.6 mg/dL (8.5-10.1)
[2023-12-07 10:52] LABS: BLOOD UREA NITROGEN 18.4 mg/dL (7-18)
[2023-12-07 12:20] LABS: HEMATOCRIT 30.4 % (35.4-49); HEMOGLOBIN 9.8 GM/dL (11.7-16.9); MCH 27.6 pg (25.7-33.7); MCHC 32.4 g/dl (32.0-35.9); MEAN CELL VOLUME 85.1 fl (80-96); PLATELET COUNT 321 10^3/uL (134-434); RBC 3.57 M/mm3 (4.00-5.60); RDW 15.8 % (11.9-15.9)
[2023-12-07 15:34] VITALS: BMI 17.3
[2023-12-08 10:33] LABS: BASO % 1.1 % (0-2.0); EOS % 3.5 % (0-4.5); HEMATOCRIT 28.9 % (35.4-49); HEMOGLOBIN 9.4 GM/dL (11.7-16.9); LYMPH % 22.7 % (8-40); MCH 27.7 pg (25.7-33.7); MCHC 32.6 g/dl (32.0-35.9); MEAN CELL VOLUME 84.9 fl (80-96); MEAN PLT VOLUME 7.8 fl (7.5-11.1); NEUT % 64.7 % (42.8-82.8); PLATELET COUNT 302 10^3/uL (134-434); RDW 15.9 % (11.9-15.9); WHITE BLOOD COUNT 5.9 K/mm3 (4.0-10.0)
[2023-12-08 10:50] LABS: POTASSIUM 4.6 mmol/L (3.5-5.1)
[2023-12-08 10:52] LABS: CALCIUM 8.5 mg/dL (8.5-10.1)
[2023-12-08 10:53] LABS: ALBUMIN 2.6 g/dl (3.4-5.0); BLOOD UREA NITROGEN 21.6 mg/dL (7-18)
[2023-12-08 10:56] LABS: CREATININE 1.1 mg/dL (0.55-1.3)
[2023-12-08 10:57] LABS: BILIRUBIN,TOTAL 0.2 mg/dL (0.2-1); TOT PROT 6.1 g/dl (6.4-8.2)
[2023-12-09 06:06] VITALS: RESP 18
[2023-12-09] MEDS: ASPIRIN 81 MG CHEWABLE TABLETS PO SCH (11:49)
[2023-12-09 16:23] VITALS: BP 107/64; PULSE 68; TEMP 97.9
== END 2023-12-09 19:36 | DRG 698 ==
LOC: JER 10:20 → JERBED 15:05 → J5S 18:40 → J6S 12-09 12:53
PROVIDERS: ADMIT Internal Medicine; ATTEND Internal Medicine
DX: T83.83XA Hemorrhage due to genitourinary prosthetic devices, implants and grafts, initial encounter (principal); E43 Unspecified severe protein-calorie malnutrition; Z68.1 Body mass index [BMI] 19.9 or less, adult; I69.354 Hemiplegia and hemiparesis following cerebral infarction affecting left non-dominant side; N39.0 Urinary tract infection, site not specified; R41.82 Altered mental status, unspecified; R31.0 Gross hematuria; F03.90 Unspecified dementia, unspecified severity, without behavioral disturbance, psychotic disturbance, mood disturbance, and anxiety; T83.511A Infection and inflammatory reaction due to indwelling urethral catheter, initial encounter; B96.20 Unspecified Escherichia coli [E. coli] as the cause of diseases classified elsewhere; Z96.643 Presence of artificial hip joint, bilateral; Y84.8 Other medical procedures as the cause of abnormal reaction of the patient, or of later complication, without mention of misadventure at the time of the procedure
CPT/HCPCS: 36415; 80048; 80053; 81003; 85025; 85027; 85610; 85730; 86850; 86900; 86901; 87086; 87186; 87635; 93005; 93010; 99285-25

== ENCOUNTER 2023-12-14 04:23 | Inpatient (IN) | payer OTHER, MEDICARE ==
[2023-12-10 09:18] VITALS: BMI 15.3
[2023-12-14 10:58] LABS: INR 1.33 (0.83-1.09); PROTHROMBIN TIME (PATIENT) 14.9 SEC (9.7-13.0)
[2023-12-14 11:00] LABS: ACTIVATED PTT 33.9 SECONDS (25.2-36.5)
[2023-12-14] MEDS ORDERED: DOCUSATE SODIUM 100 MG CAPSULE (FP) PO PRN (12:48)
[2023-12-14] MEDS ORDERED: MIDAZOLAM HCL 2 MG/2 ML SINGLE DOSE VIAL ONE (13:07)
[2023-12-14] MEDS ORDERED: PROPOFOL 20 ML ONE ×2 (13:07→13:58)
[2023-12-14] MEDS ORDERED: DEXAMETHASONE SOD PHOSPHATE 4 MG/1 ML VIAL ONE (13:13)
[2023-12-14] MEDS ORDERED: LIDOCAINE HCL/PF 2% SDV 5ML VIAL ONE (13:13)
[2023-12-14] MEDS ORDERED: ONDANSETRON 4 MG/2 ML VIAL ONE (13:13)
[2023-12-14] MEDS ORDERED: ceFAZolin SODIUM 1 GM VIAL ONE ×2 (13:18→18:02)
[2023-12-14] MEDS: ceFAZolin SODIUM 1 GM VIAL IVPB ONE (13:18)
[2023-12-14] MEDS ORDERED: ACETAMINOPHEN INJECTION 100 ML IVPB ONE (13:35)
[2023-12-14] MEDS ORDERED: ONDANSETRON 4 MG/2 ML VIAL IVPUSH PRN (14:02)
[2023-12-14] MEDS: LACTATED RINGERS SOLUTION 1,000 ML IV SCH (14:30)
[2023-12-14] MEDS ORDERED: CEFAZOLIN SODIUM 2 GM VIAL IVPB SCH (18:00)
[2023-12-14] MEDS: CEFAZOLIN SODIUM 2 GM in DEXTROSE 5%-WATER 100 ML IVPB SCH (18:07)
[2023-12-14] MEDS: QUEtiapine FUMARATE 25 MG TABLET PO SCH (21:15)
[2023-12-15] MEDS: CEPHALEXIN MONOHYDRATE 500 MG CAPSULE (UD) PO SCH (06:33)
[2023-12-15] MEDS: DEXTROSE 5%-0.45% SALINE 1,000 ML IV SCH (06:37)
[2023-12-15 09:56] LABS: HEMATOCRIT 32.5 % (35.4-49); HEMOGLOBIN 10.7 GM/dL (11.7-16.9); MCH 27.6 pg (25.7-33.7); MEAN CELL VOLUME 83.6 fl (80-96); MEAN PLT VOLUME 8.3 fl (7.5-11.1); PLATELET COUNT 228 10^3/uL (134-434); RBC 3.89 M/mm3 (4.00-5.60); RDW 16.2 % (11.9-15.9)
[2023-12-15 10:01] LABS: POTASSIUM 4.5 mmol/L (3.5-5.1)
[2023-12-15 10:14] LABS: BLOOD UREA NITROGEN 15.3 mg/dL (7-18)
[2023-12-15 10:16] LABS: CALCIUM 9.1 mg/dL (8.5-10.1)
[2023-12-16] MEDS: hydrOXYzine PAMOATE 25 MG CAPSULE (FP) PO ONE (05:11)
[2023-12-16] MEDS ORDERED: HALOPERIDOL 1 MG TABLET PO ONE (09:51)
[2023-12-16] MEDS: HALOPERIDOL 0.5 MG TABLET PO ONE (10:01)
[2023-12-16] MEDS: HALOPERIDOL LACTATE 5 MG/ML IM ONE (10:06)
[2023-12-16 10:30] LABS: BASO % 0.8 % (0-2.0); EOS % 0.3 % (0-4.5); HEMATOCRIT 27.6 % (35.4-49); HEMOGLOBIN 9.1 GM/dL (11.7-16.9); LYMPH % 17.9 % (8-40); MCH 27.6 pg (25.7-33.7); MEAN CELL VOLUME 83.6 fl (80-96); MEAN PLT VOLUME 8.2 fl (7.5-11.1); MONO % 7.5 % (3.8-10.2); NEUT % 73.5 % (42.8-82.8); PLATELET COUNT 225 10^3/uL (134-434); RBC 3.31 M/mm3 (4.00-5.60); WHITE BLOOD COUNT 8.3 K/mm3 (4.0-10.0)
[2023-12-16 10:42] LABS: POTASSIUM 4.4 mmol/L (3.5-5.1)
[2023-12-16 10:46] LABS: CALCIUM 8.7 mg/dL (8.5-10.1)
[2023-12-16 10:47] LABS: BLOOD UREA NITROGEN 15.1 mg/dL (7-18); MAGNESIUM 2.1 mg/dL (1.8-2.4)
[2023-12-16 10:50] LABS: PHOSPHOROUS 2.5 mg/dL (2.5-4.9)
[2023-12-16 10:51] LABS: BILIRUBIN,TOTAL 0.3 mg/dL (0.2-1); TOT PROT 6.8 g/dl (6.4-8.2)
[2023-12-16 10:57] LABS: ALBUMIN 3.1 g/dl (3.4-5.0)
[2023-12-16 15:16] VITALS: RESP 18
[2023-12-16] MEDS: ACETAMINOPHEN 325 MG TABLET (FP) PO PRN (15:22)
[2023-12-16] MEDS: QUEtiapine FUMARATE 50 MG TABLET PO ONE (17:21)
[2023-12-17] MEDS: HALOPERIDOL LACTATE 5 MG/ML IM ONE (03:32)
[2023-12-17 11:41] VITALS: BP 125/87; PULSE 87; TEMP 97.7
== END 2023-12-17 14:35 | DRG 665 ==
LOC: JASU-SURG 04:23 → JASUSAT 04:23 → J2C 18:31 → J6S 19:55
PROVIDERS: ADMIT Urology; ATTEND Internal Medicine
PROC: 0VB08ZZ Excision of Prostate, Via Natural or Artificial Opening Endoscopic (ICD-10-PCS; principal; 2023-12-14 12:00)
PROC: 0TBB8ZZ Excision of Bladder, Via Natural or Artificial Opening Endoscopic (ICD-10-PCS; 2023-12-14 12:00)
DX: D49.4 Neoplasm of unspecified behavior of bladder (principal); E43 Unspecified severe protein-calorie malnutrition; I69.354 Hemiplegia and hemiparesis following cerebral infarction affecting left non-dominant side; Z68.1 Body mass index [BMI] 19.9 or less, adult; I48.91 Unspecified atrial fibrillation; F03.90 Unspecified dementia, unspecified severity, without behavioral disturbance, psychotic disturbance, mood disturbance, and anxiety; N40.1 Benign prostatic hyperplasia with lower urinary tract symptoms; R33.8 Other retention of urine; D64.9 Anemia, unspecified
CPT/HCPCS: 36415; 80048; 80053; 83735; 84100; 85025; 85027; 85610; 85730; 86850; 86900; 86901; 87635; 88305-TC; 88341-TC; 94760; J0131